=== PATIENT | male | born 1950 | race Caucasian/White ===

== ENCOUNTER 2018-07-02 14:22 | Observation (INO) | payer MEDICARE ==
[2018-07-02] VITALS (8 sets, daily range): BP systolic 108–139; BP diastolic 73–90
[~2018-07-02] VITALS: Ht 177.8 cm; Wt 104.9 kg
--- NOTE | 2018-07-02 14:18 | NUR ---
PT TO ICU 2 BY WC WITH AUX. PT RAN STRAIGHT TO TOILET, LEFT BRIGHT RED BLOOD IN TOILET.
--- NOTE | 2018-07-02 14:30 | NUR ---
IV ESTABLISHED. PT ON MONITOR. VSS. LABS DRAWN.
--- NOTE | 2018-07-02 14:30 | NUR ---
PT ARRIVED TO ICU [address] WINKLER. C/O DIARRHEA x4 DAYS BEFORE RECTAL BLEEDING x2 DAYS, WORSENING TODAY. WAS SENT OVER FROM DR WELLS OFFICE DURING A VISIT. PT RECENTLY MOVED FROM [facility] AND HOME TO [place]. C/O PAIN ALL OVER. STATES DR GAVE HIM A RX FOR TRAMADOL BUT HE DIDNT TAKE IT BC IT DOESNT WORK, ADDING DILAUDID WOULD BE BETTER. NO WINCHING, GRIMACING, GAURDING, NO CHANGE IN FACIAL EXPRESSION UPON PALPATION. ABD SOFT, ACTIVE BS x4. BREATHING IS EVEN/UNLABORED. INITIALLY SHALLOW BREATHING THEN NONLABORED. LUNG SOUNDS CTA TO ALL LOBES ANTERIOR & POSTERIOR. STRONG PULSES x4. SAUNDERS. PT IS POOR HISTORIAN. PHARM CONSULT PLACED WITH MED REC SENT FROM DR WELLS OFFICE. SKIN WARM/DRY/PINK. REDDNESS UNDER EYELIDS. DENIES WOUNDS EXCEPT SCRATCHES TO BILATERAL ARMS FROM NEW PUPPY. PT STATES HE LIVES WITH "LAURA", SO. HAS EXWIFE THAT LIVES IN [place]. DENIES SMOKING, ALCOHOL CONSUMPTION, & RECREATIONAL DRUGS BUT SMELLS LIKE CIGARETTE SMOKE. 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 STATES HAS UPPER&LOWER DENTURES. REFUSES FLU & PNA VACCINE. STATES LAST TIME HE HAD RECTAL BLEEDING HE NEEDED 21UNITS OF BLOOD TRANSFUSED. PT RAN TO TOILET ON INITIAL ARRIVAL. OBSERVED BRIGHT RED BLOOD IN TOILET & ON SEAT. PT REMAINS IN UNDERWARE FROM HOME BUT STATES THEY ARE CLEAN. NO FOUL OR IRON SMELL COMING FROM BATHROOM. PT WALKS WITH STEADY GAIT. ADMITTED TO ICU A MSU TELE OVERFLOW. ADVISED TO CALL IF HE FEELS WEAK OR LIGHTHEADED. DENIES FALLS. DOES NOT USE MOBILITY AIDE. IS MUSLIM. SPEAKS/READ/WRITES [employer] PRIMARY LANGUAGE. HAS NOT BEEN IN HOSPITAL IN LAST 30 DAYS. PT STATES HE HAS HAD RECTAL BLEEDING x6 TODAY. PT STATES HE TOOK 40MG OF PREDNISONE @HOME TODAY BEFORE ARRIVAL.
--- NOTE | 2018-07-02 14:35 | NUR ---
REGISTRATION AT BEDSIDE TO COMPLETE DIRECT ADMIT
--- NOTE | 2018-07-02 14:39 | NUR ---
2 WOMEN DROPPED OF PTS CELL PHONE.
--- NOTE | 2018-07-02 14:46 | NUR ---
RT @BEDSIDE FOR EKG
[2018-07-02 15:07] LABS: HEMATOCRIT 41.5 % (39.0-50.0); HEMOGLOBIN 13.9 g/dl (14.0-18.0); IMMATURE GRANULOCYTES 0.6 % (0.0-5.0); MEAN CELL VOLUME 98.1 fL CALC (80.0-100.0); MEAN CORPUSCULAR HGB 32.9 pG CALC (26.0-32.0); MEAN CORPUSCULAR HGB CONC 33.5 g/L CALC (32.0-36.0); NEUT# 13.7 thou/uL (1.82-7.42); RED BLOOD COUNT 4.23 mill/uL (4.70-6.10); RED CELL DISTRI WIDTH 12.7 % (11.5-15.5)
--- NOTE | 2018-07-02 15:11 | NUR ---
LAB @BEDSIDE FOR T&S BANDING & DRAW.
[2018-07-02 15:29] LABS: ALKALINE PHOSPHATASE 93 u/l (38-126); ANION GAP 18 (6-22 (CALC)); BILIRUBIN, TOTAL 0.6 mg/dL (0.0-1.4); BUN 20 mg/dL (8-23); BUN/CREATININE RATIO 19 (12-20 (CALC)); CARBON DIOXIDE 20 mmol/l (22-30); CHLORIDE 106 mmol/l (95-108); CREATININE 1.1 mg/dL (0.7-1.3); GFR > 60 ML/MIN (>=60 (CALC)); GFR FOR AFR.AMER. > 60 ML/MIN (>=60 (CALC)); POTASSIUM 4.5 mmol/l (3.5-5.1); SGOT/AST 23 u/l (19-48); SODIUM 139 mmol/l (137-146); TOTAL PROTEIN 7.6 g/dL (6.3-8.2)
[2018-07-02] MEDS ORDERED: ZOLPIDEM ER12.5 MG PO (15:44)
[2018-07-02] MEDS ORDERED: SOMA350 MG PO (15:46)
[2018-07-02] MEDS ORDERED: DIPHEN/ATROP2.5 MG PO ×2 (15:47→16:53)
[2018-07-02] MEDS ORDERED: SYMBICORT1 AE1 PO (15:50)
--- NOTE | 2018-07-02 16:29 | NUR ---
PT RETURNED FROM [facility] BY WC IN STABLE CONDITION WITH RN. PT UP TO TOILET FOR URINATION WITH STEADY GAIT. NO RECTAL BLEEDING OR DIARRHEA SINCE FIRST ARRIVAL
--- NOTE | 2018-07-02 16:39 | NUR ---
[employer], CASE MANAGEMENT, @BEDSIDE. PHARM STUDENT @BEDSIDE.
--- NOTE | 2018-07-02 16:43 | NUR ---
PER DR WINKLER, HOLD BLOOD D/T LAB RESULTS. LAB AWARE.
[2018-07-02] MEDS ORDERED: ZOFRAN4 MG/TAB PO (16:49)
[2018-07-02] MEDS ORDERED: MULTIVITAMI1 PO (16:50)
[2018-07-02] MEDS ORDERED: OMEPRAZOLE10 MG PO (16:50)
[2018-07-02] MEDS ORDERED: KLOR-CON 1010 MEQ PO (16:51)
[2018-07-02] MEDS ORDERED: ENTYVIO300 MG IV (16:53)
[2018-07-02] MEDS ORDERED: IMODIUM A-D2 M3 PO (16:54)
[2018-07-02] MEDS ORDERED: VITAMIN B-COMPLEX PO (16:55)
[2018-07-02] MEDS ORDERED: VITAMIN D35000 UNIT PO (16:55)
--- NOTE | 2018-07-02 17:36 | NUR ---
PT C/O OF ITCHING. DOES NOT WANT ME TO ADD DILAUDID TO HIS ALLERGY LIST. PT SITTING UP IN BED, EATING CLEAR LIQUID DINNER. GIVEN EXTRA JUICE. PT STATES HE DOES NOT LIKE GATORADE. PT WATCHING TV, JOKING/LAUGHING WITH STAFF. NO S/S OF DISTRESS AT THIS TIME. CALLBELL W/IN REACH. WILL CONTINUE TO MONITOR.
--- NOTE | 2018-07-02 17:54 | NUR ---
DR WINKLER @BEDSIDE WITH PT, REVIEWED TEST RESULTS, DISCUSSING RESULTS & POC WITH PT.
--- NOTE | 2018-07-02 18:22 | NUR ---
COMPLETED FALL CONTRACT & BELONGINGS SHEET WITH PT. REVIEWED/SIGNED CONSENT TO GIVE BLOOD PRODUCTS. PT REQUEST WE "GO AHEAD AND JUST GIVE HIM HIS PAIN MEDICINE EVERY 4 HOURS SO HE DOESNT HAVE TO ASK FOR IT".
--- NOTE | 2018-07-02 18:29 | NUR ---
FAXED BLOOD PRODUCTS CONSENT TO [facility]. FAXED NACL KVO TO .
--- NOTE | 2018-07-02 18:45 | NUR ---
REPORT FROM Berna AHUJA RN. ASSUMED PT. CARE.
--- NOTE | 2018-07-02 19:25 | NUR ---
PT. FOUND RESTING IN BED IN NO DISTRESS. REQUESTING PAIN MEDICATION AT THIS TIME. UPDATED ON PLAN OF CARE AND TIME AND SCHEDULING OF PAIN MEDICATION. AWAKE, ALERT, ORIENTED X 3. NO DISTRESS. MAE. MOTA. AFEBRILE. PT. PROVIDED WITH BASIN, WASH CLOTHS AND TOWELS AT THIS TIME PER HIS REQUEST. SET UP IN RESTROOM TO CLEAN UP. AMBULATORY WITH STEADY GAIT TO AND FROM RESTROOM. NO DISTRESS NOTED. WILL CONTINUE TO MONITOR.
[2018-07-02 20:24] LABS: HEMOGLOBIN 12.8 g/dl (14.0-18.0); IMMATURE GRANULOCYTES 0.7 % (0.0-5.0); MEAN CELL VOLUME 98.4 fL CALC (80.0-100.0); MEAN CORPUSCULAR HGB 33.2 pG CALC (26.0-32.0); MEAN CORPUSCULAR HGB CONC 33.7 g/L CALC (32.0-36.0); NEUT# 15.85 thou/uL (1.82-7.42); RED BLOOD COUNT 3.86 mill/uL (4.70-6.10); RED CELL DISTRI WIDTH 12.6 % (11.5-15.5)
--- NOTE | 2018-07-02 20:54 | NUR ---
CALLED AND MADE AWARE OF PT. CURRENT LAB VALUES AND REQUEST FOR MUSCLE RELAXANT. NEW ORDERS RECEIVED. WILL HOLD 2 UNITS OF BLOOD PER DR. WINKLER REQUEST UNTIL RESULTS OF AM LABS. PT. REMAINS STABLE IN NO DISTRESS.
--- NOTE | 2018-07-02 22:51 | NUR ---
PT. REMAINS STABLE AT THIS TIME. RESPS REMAIN EVEN AND UNLABORED. SINUS/SINUS TACH. REMAINS STABLE IN NO APPARENT DISTRESS. CALL LIGHT REMAINS WITHIN REACH. MEDICATED PER REQUEST AND PHYSICIAN ORDERS.
[2018-07-03] VITALS: BP 116/68
[2018-07-03 00:39] LABS: URINE BILIRUBIN - DIPSTICK NEGATIVE (NEGATIVE); URINE BLOOD DIPSTICK NEGATIVE (NEGATIVE); URINE COLOR YELLOW; URINE GLUCOSE - DIPSTICK 250 mg/dL (NEGATIVE); URINE KETONE NEGATIVE (NEGATIVE); URINE LEUK ESTERASE NEGATIVE (NEGATIVE); URINE NITRITE - DIPSTICK NEGATIVE (Negative); URINE PROTEIN - DIPSTICK NEGATIVE (NEG-TRACE); URINE UROBILINOGEN - DIPSTICK 0.2 E.U./dL (0.2)
--- NOTE | 2018-07-03 01:59 | NUR ---
PT. FOUND RESTING ON RT. SIDE IN NO DISTRESS. RESPS EVEN AND UNLABORED. VOICES NO COMPLAINTS OR NEEDS AT THIS TIME. CALL LIGHT WITHIN REACH. WILL CONTINUE TO MONITOR.
[2018-07-03 04:00] VITALS: BP 108/56
--- NOTE | 2018-07-03 04:39 | NUR ---
IMMEDIATELY UPON THE 4 HOUR THI, PATIENT CONSERVATION POLICY ANALYST LIGHT REQUESTING PAIN MEDICATION. AGAIN REPORTING 7-8/10 PAIN LEVEL. RESTING IN BED IN NO APPARENT DISTRESS. BP/HR STABLE. MEDICATED AND UPDATED ON AM PLAN OF CARE. IV FLUIDS CONTINUE TO INFUSE ORDERED. URINAL EMPTIED OF 850 CC STRAW COLORED URINE. ALSO UPDATED ON UPCOMING MOVE TO MED/SURG FLOOR. DENIES OTHER COMPLAINTS OR NEEDS.
--- NOTE | 2018-07-03 05:30 | NUR ---
REPORT TO AGUS FORBES.
[2018-07-03 05:38] LABS: ALBUMIN 3.3 g/dL (3.2-5.0); ALKALINE PHOSPHATASE 74 u/l (38-126); ANION GAP 13 (6-22 (CALC)); BILIRUBIN, TOTAL 0.4 mg/dL (0.0-1.4); BUN 17 mg/dL (8-23); BUN/CREATININE RATIO 24 (12-20 (CALC)); CARBON DIOXIDE 22 mmol/l (22-30); CHLORIDE 106 mmol/l (95-108); CREATININE 0.7 mg/dL (0.7-1.3); GFR > 60 ML/MIN (>=60 (CALC)); GFR FOR AFR.AMER. > 60 ML/MIN (>=60 (CALC)); POTASSIUM 4.4 mmol/l (3.5-5.1); SGOT/AST 13 u/l (19-48); SODIUM 136 mmol/l (137-146); TOTAL PROTEIN 6.3 g/dL (6.3-8.2)
--- NOTE | 2018-07-03 06:35 | NUR ---
PT ARRIVED TO THE ROOM VIA WHEELCHAIR ACCOMPANIED BY YEIMI, PT AMBULATED FROM WHEELCHAIR TO SCALE, TO BED, STEADY GATE. PT ALERT AND ORIENTED. DENIES ANY PAIN AT THIS TIME. RESPIRATIONS EVEN AND UNLABORED ON RA. VS OBTAINED. PT ORIENTED TO ROOM AND CALL OLIVERA SYSTEM. SAFETY PRECAUTIONS IN PLACE.
[2018-07-03 06:42] VITALS: BP 139/85
[2018-07-03 06:49] LABS: HEMATOCRIT 35.2 % (39.0-50.0); HEMOGLOBIN 11.6 g/dl (14.0-18.0); IMMATURE GRANULOCYTES 0.6 % (0.0-5.0); MEAN CELL VOLUME 99.2 fL CALC (80.0-100.0); MEAN CORPUSCULAR HGB 32.7 pG CALC (26.0-32.0); NEUT# 12.33 thou/uL (1.82-7.42); RED BLOOD COUNT 3.55 mill/uL (4.70-6.10); RED CELL DISTRI WIDTH 12.5 % (11.5-15.5)
--- NOTE | 2018-07-03 06:50 | NUR ---
REPORT RECEIVED FROM AGUS FORBES; PT SITTING UP IN BED AWAKE, WATCHING TV; NO S/S OF DISTRESS NOTED.
[2018-07-03 08:31] VITALS: BP 108/69
--- NOTE | 2018-07-03 09:00 | NUR ---
PER DR WINKLER, LAB RESULTS NOT LOW ENOUGH FOR BLOOD TRANSFUSION. HOLD TRANSFUSION.
--- NOTE | 2018-07-03 10:22 | NUR ---
ASSESSMENT COMPLETED; SITTING UP IN BED ON HIS PHONE, RESP EVEN AND UNLABORED ON ROOM AIR; IVS PATENT; D5-1/2 @125CC/HR; C/O PAIN 08/14 MEDICATED AT 0900; NO S/S OF DISTRESS NOTED; CALL OLIVERA AND URINAL IN REACH; SAFETY PRECAUTION REINFORCE;
--- NOTE | 2018-07-03 11:59 | NUR ---
PT SITTING UP IN BED EATING LUNCH AND WATCHING TV; MEDICATED PER EMAR; WANTS TO KNOW WHAT TIME HIS FLEXERIL'S DUE (1400) VOIDED 700CC CLEAR, YELLOW URINE; CALL OLIVERA IN REACH; IV PATENT;
[2018-07-03 15:12] VITALS: BP 121/70
--- NOTE | 2018-07-03 16:06 | NUR ---
TALKING ON THE PHONE, SMILING; VOICE NO CONCERNS; EMPTIED 300CC CLEAR, YELLOW URINE;IVF INFUSING WITHOUT DIFFICULTY; WILL CONTINUE TO MONITOR.
--- NOTE | 2018-07-03 18:01 | NUR ---
#20G LAC INFILTRATE, CATH REMOVE,INTACT; SLIGHT SWELLING TO SITE; IVF RESUME TO #22G; C/O OF PAIN 09/14 REQUEST DILAUDID, MEDICATED PER EMAR;
[2018-07-03 19:09] VITALS: BP 140/81
--- NOTE | 2018-07-03 20:00 | NUR ---
PATIENT RESTING IN BED AT THIS TIME AWAKE ALERT AND ORIENTEDX3. PATIENT WITH IV SITE TO LEFT FOREARM WITH IVF PATENT AND INFUSING AT 125CC/HR. SITE APPEARS HEALTHY AT THIS TIME. PATIENT STATES NO BM TODAY-INSTRUCTED TO SAVE SPEC FOR STAFF TO EVAL WHEN HE DOES HAVE BM. VOIDING QS IN URINAL. PATIENT ASKING ABOUT WHEN HE CAN GET PAIN MEDS AGAIN AND WAS ADVISED NOT UNTIL APPROX 2200. VERBALIZES UNDERSTANDING. SAFETY PRECAUTIONS REINFORCED. CALL LIGHT IN REACH. WILL CONT TO MONITOR.
--- NOTE | 2018-07-03 22:26 | NUR ---
PATIENT RESTING IN BED AT THIS TIME WITH C/O ABD PAIN AND REQUESTING PAIN MEDS. PATIENT STATES THAT HIS PAIN IS 6/10 ON PAIN SCALE. MEDICATED WITH DILAUDID 1MG IVP FOR PAIN AND WITH RESTORIL FOR SLSSP. IV SITE TO LEFT FOREARM INTACT WITH IVF D51/2NS PATENT ANDINFUSING AT 125CC/HR. SITE REMAINS HEALTHY AT THIS TIME. VOIDING CLEAR YELLOW URINE IN URINAL. CALL LIGHT IN REACH. WILL CONT TO MONITOR.
--- NOTE | 2018-07-04 00:10 | NUR ---
PATIENT RESTING IN BED-MEDICATED WITH SOLU-MEDROL ORDERED. IVF PATENT AND INFUSING AT 125CC/HR. SITE LEFT FOREARM REMAINS HEALTHY. SAFETY PRECAUTIONS REINFORCED. CALL LIGHT IN REACH. WILL CONT TO MONITOR.
--- NOTE | 2018-07-04 02:15 | NUR ---
PATIENT CALLED FOR PAIN MEDS JUST PRIOR TO MED BEING DUE. STATES THAT PAIN IS BAD-HIS WHOLE ABD. STILL NO BM OR RECTAL BLEEDING NOTED. PATIENT MEDICATED WITH DILAUDID 1MG IVP ORDERED FOR PAIN. IVF D51/2NS PATENT AND INFUSING AT 75CC/HR. SITE IS HEALTHY. CALL LIGHT IN REACH. WILL CONT TO MONITOR.
[2018-07-04 04:27] VITALS: BP 112/71
[2018-07-04 05:20] LABS: HEMATOCRIT 34.5 % (39.0-50.0); HEMOGLOBIN 11.2 g/dl (14.0-18.0); IMMATURE GRANULOCYTES 1.5 % (0.0-5.0); MEAN CELL VOLUME 102.7 fL CALC (80.0-100.0); MEAN CORPUSCULAR HGB 33.3 pG CALC (26.0-32.0); MEAN CORPUSCULAR HGB CONC 32.5 g/L CALC (32.0-36.0); NEUT# 24.36 thou/uL (1.82-7.42); RED BLOOD COUNT 3.36 mill/uL (4.70-6.10); RED CELL DISTRI WIDTH 12.7 % (11.5-15.5)
[2018-07-04 05:28] LABS: ALBUMIN 3.4 g/dL (3.2-5.0); ALKALINE PHOSPHATASE 76 u/l (38-126); ANION GAP 13 (6-22 (CALC)); BILIRUBIN, TOTAL 0.3 mg/dL (0.0-1.4); BUN 18 mg/dL (8-23); BUN/CREATININE RATIO 22 (12-20 (CALC)); CARBON DIOXIDE 27 mmol/l (22-30); CHLORIDE 105 mmol/l (95-108); CREATININE 0.8 mg/dL (0.7-1.3); GFR > 60 ML/MIN (>=60 (CALC)); GFR FOR AFR.AMER. > 60 ML/MIN (>=60 (CALC)); POTASSIUM 4.8 mmol/l (3.5-5.1); SGOT/AST 13 u/l (19-48); SODIUM 140 mmol/l (137-146); TOTAL PROTEIN 6.5 g/dL (6.3-8.2)
[2018-07-04] MEDS ORDERED: PREDNISODT10 PO (06:54)
--- NOTE | 2018-07-04 06:55 | NUR ---
REPORT RECEIVED FROM AGUS BARFIELD; PT SITTING UP IN BED WATCHING TV; VOICE NO CONCERNS. CALL OLIVERA IN REACH.
--- NOTE | 2018-07-04 08:44 | NUR ---
DR WINKLER AT BEDSIDE TO DISCUSS POC
[2018-07-04] MEDS ORDERED: LEVAQUIN750 MG PO (09:12)
[2018-07-04 09:22] VITALS: BP 134/80
--- NOTE | 2018-07-04 09:27 | NUR ---
ASSESSMENT COMPLETED; SITTING UP IN BED WATCHING TV; INQUIRE OF PAIN MEDS, ADVISE IT'S DUE AT 10:00 AM; AWARE OF BEING D/C TODAY, STATES "HOPE I GET MY PAIN MED BEFORE I LEAVE" EMPTIED 200CC CLEAR, YELLOW URINE FROM URINAL; NO S/S OF DISTRESS NOTED;
--- NOTE | 2018-07-04 10:08 | NUR ---
D/C INSTRUCTIONS GIVEN TO PT ALONG WITH PRESCRIPTIONS; FOLLOW UP WITH DR WINKLER IN A WEEK/LABS; VERBALIZE UNDERSTANDING
--- NOTE | 2018-07-04 12:17 | NUR ---
HEARD PT ON THE PHONE WITH SPOUSE SAYING "LAURA YOU NEED TO COME GET ME, THEY ARE MAD AT ME, THEY NEED THIS ROOM FOR SOMEONE ELSE. IF YOU DON'T COME GET ME I WILL SCREAM AND GET A TAXI"
--- NOTE | 2018-07-04 12:31 | NUR ---
Discharge instructions given. Patient verbalizes understanding of same. Discharged in stable condition via Wheelchair to Home with spouse. All belongings sent with pt.
== END 2018-07-04 12:31 | disposition home or self-care (01) ==
LOC: ICU 14:22 → MS2 07-03 06:30
PROVIDERS: ADMIT Internal Medicine Geriatric Medicine; ATTEND Internal Medicine Geriatric Medicine
DX: K51.911 Ulcerative colitis, unspecified with rectal bleeding (principal); I10 Essential (primary) hypertension; M06.9 Rheumatoid arthritis, unspecified; M19.90 Unspecified osteoarthritis, unspecified site; J44.9 Chronic obstructive pulmonary disease, unspecified; E11.42 Type 2 diabetes mellitus with diabetic polyneuropathy; E78.5 Hyperlipidemia, unspecified; I25.10 Atherosclerotic heart disease of native coronary artery without angina pectoris; K75.81 Nonalcoholic steatohepatitis (NASH); E83.119 Hemochromatosis, unspecified; D64.9 Anemia, unspecified
CPT/HCPCS: Q9967

== ENCOUNTER 2018-08-07 08:33 | Day surgery (SDC) | payer MEDICARE ==
[~2018-08-07 08:33] MED LIST: ADVIL200 MG PO; ASHWAGANDHA500 MG; DIPHEN/ATROP2.5 MG PO; DIPHENOXYLATE/A1 TA1; ENTYVIO300 MG IV; GINGER ROOT550 MG PO; GINKGO BILOB120 MG PO; IMODIUM A-D2 M3 PO; KLOR-CON 1010 MEQ PO; LEVAQUIN750 MG PO; LIALDA1.2 GM PO; METOPROL TAR25 MG PO; MULTIVITAMI1 PO; OMEPRAZOLE10 MG PO; PREDNISODT10 PO; SOMA350 MG PO; SYMBICORT1 AE1 PO; TURMERI1 PO; TYLENOL650 MG RE; VITAMIN B-COMPLEX PO; VITAMIN D35000 UNIT PO; ZOFRAN4 MG/TAB PO; ZOLPIDEM ER12.5 MG PO
[2018-08-07 11:08] VITALS: BP 96/60
[2018-08-12] MEDS ORDERED: NITROSTAT0.4 MG SL (11:27)
[2018-08-12] MEDS ORDERED: TRAMADOL HCL50 MG PO (11:27)
[2018-08-12] MEDS ORDERED: PREDNISONE10 MG PO (11:27)
== END 2018-08-07 11:20 | disposition home or self-care (01) ==
LOC: ENDO 08:33 → ORM 12:10 → ENDO 13:00 → ORM 14:55
PROVIDERS: ATTEND Internal Medicine Gastroenterology
PROC: 0DBK8ZX Excision of Ascending Colon, Via Natural or Artificial Opening Endoscopic, Diagnostic (ICD-10-PCS; principal; 2018-08-07)
PROC: 0DBL8ZX Excision of Transverse Colon, Via Natural or Artificial Opening Endoscopic, Diagnostic (ICD-10-PCS; 2018-08-07)
PROC: 0DBN8ZX Excision of Sigmoid Colon, Via Natural or Artificial Opening Endoscopic, Diagnostic (ICD-10-PCS; 2018-08-07)
PROC: 0DBP8ZX Excision of Rectum, Via Natural or Artificial Opening Endoscopic, Diagnostic (ICD-10-PCS; 2018-08-07)
PROC: 0DBM8ZX Excision of Descending Colon, Via Natural or Artificial Opening Endoscopic, Diagnostic (ICD-10-PCS; 2018-08-07)
DX: K50.114 Crohn's disease of large intestine with abscess (principal); K50.111 Crohn's disease of large intestine with rectal bleeding; K64.4 Residual hemorrhoidal skin tags; K64.8 Other hemorrhoids; K63.89 Other specified diseases of intestine; Z86.010 Personal history of colon polyps

== ENCOUNTER 2019-08-09 11:55 | Inpatient (IN) | payer MEDICARE ==
[~2019-08-09] VITALS: Ht 177.8 cm; Wt 109.8 kg
[~2019-08-09 11:55] MED LIST changes: +NITROSTAT0.4 MG SL; +PREDNISONE10 MG PO; +TRAMADOL HCL50 MG PO
--- NOTE | 2019-08-09 12:08 | NUR ---
PATIENT AMBULATED TO ROOM WITH STEADY GAIT AND PRACTIONER AT BEDSIDE FOR EVAL
[2019-08-09] MEDS ORDERED: OMEPRAZOLE DR20 MG PO (12:10)
[2019-08-09] MEDS ORDERED: POT CHLORIDE10 ME5 PO (12:11)
[2019-08-09] MEDS ORDERED: DIPHEN/ATROP2.5 MG PO (12:12)
--- NOTE | 2019-08-09 12:15 | NUR ---
#20 IV STARTED IN RIGHT HAND. BLOOD SPECIMENS AND URINE COLLECTED. ADVISEDOF PLAN OF CARE. VERBALIZED UNDERSTANDING. CALL LIGHT GIVEN.
[2019-08-09] MEDS ORDERED: STELARA130 MG/26 SC (12:20)
[2019-08-09] MEDS ORDERED: METOPROL TAR25 MG PO (12:21)
--- NOTE | 2019-08-09 12:30 | NUR ---
PT REPORTS PAINFUL URINATION STARTING 3 DAYS PRIOR. PT WAS SEEN BY UROLOGIST ON FRIDAY AND REPORTS HE WAS NOT PRESCRIBED ANYTHING. PT UPDATED ON PLAN OF CARE AND WAIT TIME. CALL JOSELIN REDD.
[2019-08-09 12:33] LABS: HEMOGLOBIN 13.1 g/dl (14.0-18.0); IMMATURE GRANULOCYTES 1.6 % (0.0-5.0); MEAN CORPUSCULAR HGB 31.1 pG CALC (26.0-32.0); MEAN CORPUSCULAR HGB CONC 32.8 g/dL CAL (32.0-36.0); NEUT# 24.89 thou/uL (1.82-7.42); RED BLOOD COUNT 4.21 mill/uL (4.70-6.10); RED CELL DISTRI WIDTH 13.6 % (11.5-15.5)
[2019-08-09] MEDS ORDERED: BUDESONIDE3 MG PO (12:35)
[2019-08-09 12:44] LABS: ALBUMIN 3.4 g/dL (3.2-5.0); ALKALINE PHOSPHATASE 148 u/l (38-126); BUN 15 mg/dL (8-23); BUN/CREATININE RATIO 13 (12-20 (CALC)); CHLORIDE 106 mmol/l (95-108); CREATININE 1.1 mg/dL (0.7-1.3); GFR > 60 ML/MIN (>=60 (CALC)); GFR FOR AFR.AMER. > 60 ML/MIN (>=60 (CALC)); LIPASE 121 u/l (23-300); POTASSIUM 4.1 mmol/l (3.5-5.1); SGOT/AST 18 u/l (19-48); SODIUM 138 mmol/l (137-146); TOTAL PROTEIN 7.5 g/dL (6.3-8.2)
[2019-08-09 12:57] LABS: ANION GAP 15 (6-22 (CALC)); BILIRUBIN, TOTAL 0.6 mg/dL (0.0-1.4); CARBON DIOXIDE 21 mmol/l (22-30)
[2019-08-09 13:12] LABS: URINE BLOOD DIPSTICK LARGE (NEGATIVE); URINE COLOR YELLOW; URINE GLUCOSE - DIPSTICK NEGATIVE (NEGATIVE); URINE KETONE TRACE mg/dL (NEGATIVE); URINE LEUK ESTERASE TRACE (NEGATIVE); URINE PROTEIN - DIPSTICK 100 mg/dL (NEG-TRACE); URINE SPECIFIC GRAVITY >=1.030; URINE UROBILINOGEN - DIPSTICK 0.2 E.U./dL (0.2)
--- NOTE | 2019-08-09 13:25 | NUR ---
PT RETURNED FROM RADIOLOGY. 1ST SET OF BLOOD CX OBTAINED AND LACTIC PER EDITOR MANAGING NEWSPAPER ORDER. PT TOLERATED WELL. ADVISED OF CONTINUED WAIT FOR RESULTS. VERBALIZED UNDERSTANDING. DENIES ANY NEEDS. CALL LIGHT GIVEN.
[2019-08-09 13:32] LABS: URINE BILIRUBIN - DIPSTICK SMALL (NEGATIVE)
--- NOTE | 2019-08-09 13:37 | NUR ---
DR LIMA IN ROOM SPEAKING WITH PT.
[2019-08-09 13:38] LABS: URINE NITRITE - DIPSTICK POSITIVE (Negative)
[2019-08-09 13:55] LABS: URINE RBC 0-2 RBC/hpf (0-5); URINE SQUAMOUS EPITHELIAL CELL FEW EPI/hpf (0-FEW)
[2019-08-09 13:56] LABS: URINE MUCUS FEW hpf (NONE-FEW)
--- NOTE | 2019-08-09 14:00 | NUR ---
BLADDER SCAN COMPLETED PER MD ORDER 57ML IN BLADDER MD NOTIFIED
--- NOTE | 2019-08-09 14:30 | NUR ---
PT RESTING ON STRECHER. RESP EVEN AND UNLABORED. SKIN WARM AND DRY. REPORTS PAIN LEVEL 4/10 AFTER MEDICATION ADMINISTRATION.
--- NOTE | 2019-08-09 15:57 | NUR ---
REPORT CALLED TO MED SURG
--- NOTE | 2019-08-09 16:05 | NUR ---
Admission Note Report Given to: AGUS LAW Transported by: X Wheelchair Stretcher Transported with: X Nurse Transporter X Patent IV O2 X Sheep And Wheat Farmer Location: ICU X MS2 PT TO ROOM 268 IN STABLE CONDITION.
[2019-08-09 16:12] VITALS: BP 123/73
--- NOTE | 2019-08-09 16:15 | NUR ---
PT ADMITTED TO MED SURG. PT ORIENTED TO ROOM, CALL BUTTON, LIGHTS, TV REMOTE, [place]. PT IS ALERT AND ORIENTED AND ABLE TO MAKE HIS NEEDS KNOWN. PT C/O PAIN WITH URINATION THAT RESOLVES AFTER PT IS DONE URINATING. PT DESCRIBES PAIN BURNING PAIN. PT ALSO C/O URGENCY. URINE IS YELLOW AND CLEAR. PT C/O TENDERNESS IN LOWER ABDOMEN DUE TO HX OF CROHN'S DISEASE. STORM DOOR MAKER WILL CONTINUE TO MONITOR. CALL LIGHT WITHIN EASY REACH.
[2019-08-09 18:24] VITALS: BP 142/81
--- NOTE | 2019-08-09 20:00 | NUR ---
PATIENT RESTING IN BED AT THIS TIME-AWAKE ALERT AND ORIENTEDX3. PATIENT STATES THAT HE CONT TO HAVE PAIN UPON URINATION AND SOME URINE INCONT. PATIENT ALSO WITH HX OF CROHNS DISEASE-HAVING WATERY RUST COLORED STOOLS. TELE MONITOR IN PLACE-SR-89 AT THIS TIME. IVF NS PATENT AND INFUSING VIA RIGHT HAND SITE. APPEARS HEALTHY AT THIS TIME. SAFETY PRECAUTIONS REINFORCED. CALL LIGHT IN REACH. WILL CONT TO MONITOR.
--- NOTE | 2019-08-09 21:30 | NUR ---
MEDICATED FOR ABD PAIN WITH TYLENOL ORDERED. CALL LIGHT IN REACH. WILL CONT TO MONITOR.
--- NOTE | 2019-08-09 23:00 | NUR ---
PATIENT STATES THAT HE CONT TO HAVE WATERY RUST COLORED STOOLS. 6 SO FAR TONIGHT. PATIENT CONT TO HAVE ABD PAIN. TYLENOL INEFFECTIVE WITH THE PAIN.CALL PLACED TO DR. ACOSTA AND NEW ORDER FOR PAIN OBTAINED. WILL MEDICATE WITH MORPHINE WHEN PROFILED ON EMAR. CALL LIGHT IN REACH. WILL CONT TO MONITOR.
[2019-08-09 23:33] VITALS: BP 126/82
--- NOTE | 2019-08-10 00:09 | NUR ---
PATIENT CONT TO HAVE RUST COLORED DIARRHEA-PATIENT HX 0F CROHNS DISEASE. C/O SEVERE ABD PAIN. MEDICATED WITH LOMOTIL 5MG PO FOR DIARRHEA AND WITH MORPHINE 2MG FOR PAIN. CALL LIGHT IN REACH. WILL CONT TO MONITOR.
[2019-08-10 03:29] VITALS: BP 133/80
--- NOTE | 2019-08-10 05:13 | NUR ---
PATIENT RESTING IN BED-C/O ABD PAIN-MEDICATED FOR PAIN WITH MORPHINE 2MG IVP VIA RIGHT HAND IV SITE. TELE MONITOR IN PLACE. CONT TO HAVE LOOSE STOOLS. SAFETY PRECAUTIONS REINFORCED. CALL LIGHT IN REACH. WILL CONT TO MONITOR.
--- NOTE | 2019-08-10 05:14 | NUR ---
APPEARS SLEEPING AT THIS TIME WITH EYES CLOSED. RESPS ARE EVEN AND UNLABORED. TELE MONITOR IN PLACE. CALL LIGHT IN REACH. WILL CONT TO MONITOR.
[2019-08-10 06:11] LABS: HEMATOCRIT 35.4 % (39.0-50.0); HEMOGLOBIN 11.4 g/dl (14.0-18.0); IMMATURE GRANULOCYTES 1.1 % (0.0-5.0); MEAN CELL VOLUME 96.2 fL CALC (80.0-100.0); MEAN CORPUSCULAR HGB CONC 32.2 g/dL CAL (32.0-36.0); NEUT# 18.07 thou/uL (1.82-7.42); RED BLOOD COUNT 3.68 mill/uL (4.70-6.10); RED CELL DISTRI WIDTH 13.2 % (11.5-15.5)
[2019-08-10 07:03] LABS: ALBUMIN 2.8 g/dL (3.2-5.0); ALKALINE PHOSPHATASE 129 u/l (38-126); ANION GAP 11 (6-22 (CALC)); BILIRUBIN, TOTAL 0.3 mg/dL (0.0-1.4); BUN 14 mg/dL (8-23); BUN/CREATININE RATIO 16 (12-20 (CALC)); CARBON DIOXIDE 20 mmol/l (22-30); CHLORIDE 109 mmol/l (95-108); CREATININE 0.9 mg/dL (0.7-1.3); GFR > 60 ML/MIN (>=60 (CALC)); GFR FOR AFR.AMER. > 60 ML/MIN (>=60 (CALC)); POTASSIUM 4.2 mmol/l (3.5-5.1); SGOT/AST 17 u/l (19-48); SODIUM 136 mmol/l (137-146); TOTAL PROTEIN 6.4 g/dL (6.3-8.2)
--- NOTE | 2019-08-10 07:30 | NUR ---
change of shift report received from jluis Miguel. pt in room in semi-aguilar position. pt is able to make needs known. pt requesting lomotil for c/o diarrhea. lomotil administered per order. pt notified to not flush stool after bowel movement so that film writer can observe. pt verbalized understanding.
[2019-08-10 09:21] VITALS: BP 126/87
[2019-08-10 11:57] VITALS: BP 124/83
--- NOTE | 2019-08-10 12:00 | NUR ---
PAIN MEDICATION ADMINISTERED FOR C/O PAIN OF 10/14. WHEELCHAIR VAN DRIVER WILL CONTINUE TO MONITOR
[2019-08-10 15:18] VITALS: BP 117/67
--- NOTE | 2019-08-10 15:44 | NUR ---
pt has had two episodes of yellow loose stool. no blood noted in stool.
--- NOTE | 2019-08-10 17:56 | NUR ---
DOCTOR STEPHANIE NOTIFIED OF PT'S C/O INSOMNIA. PT REQUESTING MEDS FOR SLEEP THIS PM. NEW ORDER FOR RESTORIL 10MG ONE TIME DOSE FAXED TO [facility].
[2019-08-10 18:18] VITALS: BP 134/79
--- NOTE | 2019-08-10 20:15 | NUR ---
PT AWAKE RESTING IN BED. ALERT AND ORIENTED X3. RESP EVEN AND UNLABORED. NO DISTRESS NOTED. O2 SAT ON R/A 95%. SKIN WARM AND DRY. IV SITE IS PATENT IN RT HAND NO REDNESS,SWELLING OR TENDERNESS NOTED AT IV SITE. IVF NSS AT 125CC/HR. LUNGS CLEAR BILAT. ABD SOFT AND NONDISTENDED WITH BOWEL SOUNDS PRESENT. NO LOWER EXT EDEMA NOTED. PEDAL PULSES PALPATED BILAT. PT VOIDED 200CC OF CLEAR YELLOW URINE IN URINAL. TELE SR 80'S PER E.D. PT OFFERS NO COMPLAINTS AT THIS TIME. ASSISTED WITH REPOSITIONING. FREQUENT ROUNDS MADE. CALL OLIVERA WITHIN REACH.
--- NOTE | 2019-08-10 22:01 | NUR ---
PT AWAKE RESTING IN BED. INFORMED THIS FOOT ORTHOPEDIST SPOKE WITH DR BROWN REGARDING ACCUCHECK OF 316 AND SLIDING SCALE HAS BEEN ORDERED. PT MEDICATED WITH NOVOLOG INSULIN 4 UNITS S.Q. , MORPHINE SULFATE 2MG IV FOR ABDOMINAL AND BACK DISCOMFORT, RESTORIL 15MG ONE TAB P.O FOR SLEEP AND LOMOTIL 5MG P.O . PT HAS HAD NO BOWEL MOVEMENT THIS SHIFT BUT INSIST HE NEEDS LOMOTIL BECAUSE HE STATES HE TAKES IT SIX TIMES A DAY AT HOME. IV SITE PATENT. FREQUENT ROUNDS MADE. CALL OLIVERA WITHIN REACH.
[2019-08-10 23:35] VITALS: BP 108/63
--- NOTE | 2019-08-11 00:09 | NUR ---
PT RESTING IN BED WITH EYES CLOSED. RESP EVEN AND UNLABORED. NO DISTRESS NOTED. IV SITE PATENT. TELE INTACT. FREQUENT ROUNDS MADE. CALL OLIVERA WITHIN REACH.
--- NOTE | 2019-08-11 03:12 | NUR ---
PT RANG CALL OLIVERA FOR PAIN MED. MEDICATED WITH MORPHINE SULFATE 2MG IV FOR ABD AND BACK DISCOMFORT. IV SITE PATENT. PT STATES HE HAD DIARRHEA AND ITS IN THE TOILET, FOR US TO SEE. NO BOWEL MOVEMENT IN TOILET ONLY TOILET PAPER. NO OBSERVED BM'S THIS SHIFT. FREQUENT ROUNDS MADE. CALL OLIVERA WITHIN REACH.
[2019-08-11 03:48] VITALS: BP 115/73
--- NOTE | 2019-08-11 04:32 | NUR ---
PT RESTING IN BED WITH EYES CLOSED. RESP EVEN AND UNLABORED. IV SITE PATENT WITH NSS AT 125CC/HR. TELE SR. ASSESSMENT UNCHANGED. FREQUENT ROUNDS MADE. CALL OLIVERA WITHIN REACH.
--- NOTE | 2019-08-11 05:20 | NUR ---
PT USED BCS. PT HAD A SMALL LOSE LIGHT BROWN BOWEL MOVEMENT. PT REFERS TO IT DIARRHEA BUT ITS NOT. NO BLOOD NOTED. CALL OLIVERA WITHIN REACH.
[2019-08-11 05:57] LABS: HEMATOCRIT 36.2 % (39.0-50.0); HEMOGLOBIN 11.6 g/dl (14.0-18.0); IMMATURE GRANULOCYTES 1.4 % (0.0-5.0); MEAN CELL VOLUME 96.3 fL CALC (80.0-100.0); MEAN CORPUSCULAR HGB 30.9 pG CALC (26.0-32.0); NEUT# 16.96 thou/uL (1.82-7.42); RED BLOOD COUNT 3.76 mill/uL (4.70-6.10); RED CELL DISTRI WIDTH 13.2 % (11.5-15.5)
[2019-08-11 06:12] LABS: ANION GAP 14 (6-22 (CALC)); BUN 9 mg/dL (8-23); BUN/CREATININE RATIO 13 (12-20 (CALC)); CARBON DIOXIDE 19 mmol/l (22-30); CHLORIDE 110 mmol/l (95-108); CREATININE 0.7 mg/dL (0.7-1.3); GFR > 60 ML/MIN (>=60 (CALC)); GFR FOR AFR.AMER. > 60 ML/MIN (>=60 (CALC)); POTASSIUM 4.3 mmol/l (3.5-5.1); SODIUM 139 mmol/l (137-146)
--- NOTE | 2019-08-11 07:00 | NUR ---
SHIFT CHANGE REPORT, PT AWAKE ALERT AND ORIENTED AMBULATING IN ROOM FROM BED TO BR, IVF INFUSING, TELE MONITOR IN PLACE, C/O RIGHT SIDE ABDOMINAL PAIN, CONDERNS ADDRESSED, CALL OLIVERA IN REACH.
[2019-08-11 08:04] VITALS: BP 116/68
[2019-08-11 10:55] VITALS: BP 122/75
--- NOTE | 2019-08-11 12:00 | NUR ---
UP TO BR INDEPENDENTLY, MEDICAL TEAM ROUNDED AND DISCUSSED PLAN OF CARE, ALL NEEDS ADDRESSED, CALL OLIVERA IN REACH.
[2019-08-11 15:50] VITALS: BP 113/69
--- NOTE | 2019-08-11 15:50 | NUR ---
RESTING IN BED AT THIS TIME, NO CONCERN TO BE BE ADDRESSED.
[2019-08-11 19:00] VITALS: BP 136/80
--- NOTE | 2019-08-11 19:13 | NUR ---
REPORT RECEIVED FROM AGUS BANDA. PT RESTING IN BED, ALERT AND ORIENTED. RESPIRATIONS EVEN AND UNLABORED ON RA, LUNGS SOUND CLEAR. PT REPORTS PAIN OF A 7/10, PT TO BE MEDICATED. SAFETY PRECAUTIONS IN PLACE. WILL CONTINUE TO MONITOR.
[2019-08-12] VITALS: BP 148/81
--- NOTE | 2019-08-12 00:24 | NUR ---
PT RESTING IN BED, RESPIRATIONS EVEN AND UNLABORED ON RA. NO S/S OF DISTRESS AT THIS TIME. SAFETY PRECAUTIONS IN PLACE. WILL CONTINUE TO MONITOR.
--- NOTE | 2019-08-12 04:19 | NUR ---
PT RESTING IN BED. RESPIRATIONS EVEN AND UNLABORED ON RA. TELE IN PLACE. WILL CONTINUE TO MONITOR.
[2019-08-12 04:30] VITALS: BP 134/69
[2019-08-12 04:45] LABS: HEMATOCRIT 36.6 % (39.0-50.0); HEMOGLOBIN 11.6 g/dl (14.0-18.0); MEAN CELL VOLUME 96.1 fL CALC (80.0-100.0); MEAN CORPUSCULAR HGB 30.4 pG CALC (26.0-32.0); MEAN CORPUSCULAR HGB CONC 31.7 g/dL CAL (32.0-36.0); RED BLOOD COUNT 3.81 mill/uL (4.70-6.10); RED CELL DISTRI WIDTH 13.3 % (11.5-15.5)
[2019-08-12 05:00] LABS: ALBUMIN 3.1 g/dL (3.2-5.0); ALKALINE PHOSPHATASE 105 u/l (38-126); ANION GAP 13 (6-22 (CALC)); BILIRUBIN, TOTAL 0.2 mg/dL (0.0-1.4); BUN 11 mg/dL (8-23); BUN/CREATININE RATIO 16 (12-20 (CALC)); CARBON DIOXIDE 21 mmol/l (22-30); CHLORIDE 110 mmol/l (95-108); CREATININE 0.7 mg/dL (0.7-1.3); GFR > 60 ML/MIN (>=60 (CALC)); GFR FOR AFR.AMER. > 60 ML/MIN (>=60 (CALC)); POTASSIUM 4.7 mmol/l (3.5-5.1); SGOT/AST 22 u/l (19-48); SODIUM 139 mmol/l (137-146); TOTAL PROTEIN 6.9 g/dL (6.3-8.2)
[2019-08-12 07:17] VITALS: BP 145/88
--- NOTE | 2019-08-12 07:17 | NUR ---
PT LAYING IN BED. A&O X3. NO DISTRESS NOTED. PT C/O OF ABD PAIN. MORPHINE GIVEN. NO OTHER NEEDS AT THIS TIME. ASSESSMENT COMPLETED. DISCUSSED POC. CALL LIGHT IN REACH. CONTINUE TO MONITOR.
[2019-08-12] MEDS ORDERED: PREDNISONE20 MG PO (10:40)
[2019-08-12] MEDS ORDERED: CIPROFLOXACN500 MG PO ×2 (10:40)
[2019-08-12 11:11] VITALS: BP 144/81
--- NOTE | 2019-08-12 12:44 | NUR ---
D/C INSTRUCTIONS GIVEN TO PT. IV INTACT UPON REMOVAL.
--- NOTE | 2019-08-12 13:15 | NUR ---
Discharge instructions given. Patient verbalizes understanding of same. Discharged in stable condition via Wheelchair to Home with staff. All belongings sent with pt.
== END 2019-08-12 13:50 | disposition home or self-care (01) | DRG 872 ==
LOC: ED 11:55 → ED-I 14:15 → ED 14:28 → ED-I 14:29 → MS2 14:29
PROVIDERS: Nurse Practitioner Family; ADMIT Internal Medicine; ATTEND Internal Medicine
DX: A41.9 Sepsis, unspecified organism (principal); N12 Tubulo-interstitial nephritis, not specified as acute or chronic; K51.911 Ulcerative colitis, unspecified with rectal bleeding; E11.9 Type 2 diabetes mellitus without complications; J44.9 Chronic obstructive pulmonary disease, unspecified; I48.91 Unspecified atrial fibrillation; I10 Essential (primary) hypertension; T45.515A Adverse effect of anticoagulants, initial encounter; B96.20 Unspecified Escherichia coli [E. coli] as the cause of diseases classified elsewhere; Z86.718 Personal history of other venous thrombosis and embolism; Z86.711 Personal history of pulmonary embolism; Z95.828 Presence of other vascular implants and grafts; Z87.442 Personal history of urinary calculi; R30.0 Dysuria
CPT/HCPCS: G0378; J1650; Q9967

== ENCOUNTER 2019-10-08 12:15 | Emergency (ER) | payer MEDICARE ==
[~2019-10-08] VITALS: Ht 177.8 cm; Wt 110.0 kg
[~2019-10-08 12:15] MED LIST changes: +BUDESONIDE3 MG PO; +CIPROFLOXACN500 MG PO; +OMEPRAZOLE DR20 MG PO; +POT CHLORIDE10 ME5 PO; +PREDNISONE20 MG PO; +STELARA130 MG/26 SC
[2019-10-08] MEDS ORDERED: HYDROCO/APAP1 TA9 PO ×2 (14:48)
[2019-10-08 15:40] VITALS: BP 146/92
== END 2019-10-08 15:40 | disposition home or self-care (01) ==
LOC: ED 12:15
DX: M25.561 Pain in right knee (principal); J44.9 Chronic obstructive pulmonary disease, unspecified; E11.9 Type 2 diabetes mellitus without complications; I25.2 Old myocardial infarction

== ENCOUNTER 2019-12-30 04:52 | Emergency (ER) | payer MEDICARE ==
[~2019-12-30] VITALS: Ht 177.8 cm; Wt 104.5 kg
[~2019-12-30 04:52] MED LIST changes: +HYDROCO/APAP1 TA9 PO
[2019-12-30 05:55] LABS: HEMATOCRIT 38.9 % (39.0-50.0); HEMOGLOBIN 12.7 g/dl (14.0-18.0); IMMATURE GRANULOCYTES 0.6 % (0.0-5.0); MEAN CELL VOLUME 92.2 fL CALC (80.0-100.0); MEAN CORPUSCULAR HGB 30.1 pG CALC (26.0-32.0); MEAN CORPUSCULAR HGB CONC 32.6 g/dL CAL (32.0-36.0); NEUT# 11.43 thou/uL (1.82-7.42); RED BLOOD COUNT 4.22 mill/uL (4.70-6.10); RED CELL DISTRI WIDTH 16.3 % (11.5-15.5)
[2019-12-30 06:13] LABS: BUN 9 mg/dL (8-23); BUN/CREATININE RATIO 7 (12-20 (CALC)); CARBON DIOXIDE 24 mmol/l (22-30); CHLORIDE 103 mmol/l (95-108); CREATININE 1.2 mg/dL (0.7-1.3); GFR 60 ML/MIN (>=60 (CALC)); GFR FOR AFR.AMER. > 60 ML/MIN (>=60 (CALC)); LIPASE 65 u/l (23-300); SGOT/AST 16 u/l (19-48); SODIUM 135 mmol/l (137-146); TOTAL PROTEIN 6.5 g/dL (6.3-8.2)
[2019-12-30 06:14] LABS: ALBUMIN 2.8 g/dL (3.2-5.0); ALKALINE PHOSPHATASE 111 u/l (38-126); ANION GAP 11 (6-22 (CALC)); BILIRUBIN, TOTAL 0.4 mg/dL (0.0-1.4); POTASSIUM 3.3 mmol/l (3.5-5.1)
[2019-12-30 07:49] LABS: URINE BLOOD DIPSTICK TRACE-INTACT (NEGATIVE); URINE COLOR YELLOW; URINE GLUCOSE - DIPSTICK NEGATIVE (NEGATIVE); URINE KETONE TRACE mg/dL (NEGATIVE); URINE LEUK ESTERASE NEGATIVE (NEGATIVE); URINE PH 5.5 (4.5-8.0); URINE PROTEIN - DIPSTICK 30 mg/dL (NEG-TRACE); URINE SPECIFIC GRAVITY 1.025; URINE UROBILINOGEN - DIPSTICK 0.2 E.U./dL (0.2)
[2019-12-30 07:52] LABS: URINE BILIRUBIN - DIPSTICK NEGATIVE (NEGATIVE)
[2019-12-30 08:03] LABS: URINE EPITHELIAL CELLS RARE EPI/hpf (0-FEW); URINE FINE GRAN CAST FEW lpf; URINE MUCUS FEW hpf (NONE-FEW); URINE NITRITE - DIPSTICK NEGATIVE (Negative); URINE WBC 0-2 WBC/hpf (0-5)
[2019-12-30] MEDS ORDERED: CIPROFLOXACN500 MG PO (09:12)
[2019-12-30] MEDS ORDERED: MEDDOSEPAK PO ×2 (09:12)
[2019-12-30 10:31] VITALS: BP 99/66
== END 2019-12-30 10:22 | disposition home or self-care (01) ==
LOC: ED 04:52
PROVIDERS: Family Medicine
DX: K51.00 Ulcerative (chronic) pancolitis without complications (principal); J44.9 Chronic obstructive pulmonary disease, unspecified; E11.9 Type 2 diabetes mellitus without complications; I25.2 Old myocardial infarction
CPT/HCPCS: J1956; Q9967

== ENCOUNTER 2020-01-06 11:52 | Inpatient (IN) | payer MEDICARE ==
[~2020-01-06] VITALS: Ht 177.8 cm; Wt 104.5 kg
[~2020-01-06 11:52] MED LIST changes: +MEDDOSEPAK PO
--- NOTE | 2020-01-06 12:06 | NUR ---
PT ARRIVED TO MED/SURG ROOM 268 IN STABLE CONDITION VIA WHEELCHAIR ACCOMPANIED BY REGISTRATION;PT AMBULATED TO STANDING SCALE AND BEDSIDE;WT AND VS OBTAINED BY VELASQUEZ RANKIN;PT A&O X3, ORIENTED TO ROOM AND CALL LIGHT SYSTEM;PT REPORTS DIARRHEA R/T CROHNS DISEASE AND LOW BLOOD PRESSURE;PT REPORTS CHRONIC PAIN, PAIN SCALE AND REPORTING EDUCATED;ASSESSMENT COMPLETED;RESPIRATIONS EVEN AND UNLABORED ON RA,CLEAR LUNG SOUNDS;ABDOMEN DISTENDED/SOFT ON PALPATION AND ACTIVE IN ALL 4 QUADRANTS,LAST BM 01/05/20;WEAK PEDAL PULSES;SKIN INTACT;#22G STARTED TO LAC ON 1ST ATTEMPT BY THIS WRITTER,ABX TO BE STARTED PER ORDER;ALLERGY BAND APPLIED TO LEFT WRIST;FRESH WATER PROVIDED PER REQUEST;PT DENIES ANY ADDITIONAL NEEDS AT THIS TIME;ENCOURAGED TO CALL FOR ASSISTANCE IF NEEDED;FALL PRECAUTIONS IN PLACE WITH BED IN THE LOWEST POSITION AND CALL LIGHT IN REACH;WILL CONTINUE TO MONITOR
[2020-01-06 12:10] VITALS: BP 88/56
--- NOTE | 2020-01-06 12:33 | NUR ---
RT AT BEDSIDE OBTAINING EKG.
--- NOTE | 2020-01-06 12:53 | NUR ---
LAB AT BEDSIDE
--- NOTE | 2020-01-06 12:56 | NUR ---
HOME MEDICATIONS SENT TO PHARMACY AT THIS TIME.
[2020-01-06 13:13] LABS: HEMATOCRIT 35.5 % (39.0-50.0); HEMOGLOBIN 10.9 g/dl (14.0-18.0); IMMATURE GRANULOCYTES 2.7 % (0.0-5.0); MEAN CELL VOLUME 98.6 fL CALC (80.0-100.0); MEAN CORPUSCULAR HGB 30.3 pG CALC (26.0-32.0); MEAN CORPUSCULAR HGB CONC 30.7 g/dL CAL (32.0-36.0); NEUT# 12.53 thou/uL (1.82-7.42); RED BLOOD COUNT 3.6 mill/uL (4.70-6.10); RED CELL DISTRI WIDTH 16.5 % (11.5-15.5)
[2020-01-06] MEDS ORDERED: LASIX 80 MG TAB80 MG PO (13:17)
[2020-01-06 13:23] LABS: ALBUMIN 3.1 g/dL (3.2-5.0); ALKALINE PHOSPHATASE 57 u/l (38-126); ANION GAP 12 (6-22 (CALC)); BILIRUBIN, TOTAL 0.4 mg/dL (0.0-1.4); BUN 23 mg/dL (8-23); BUN/CREATININE RATIO 18 (12-20 (CALC)); CARBON DIOXIDE 26 mmol/l (22-30); CHLORIDE 104 mmol/l (95-108); CREATININE 1.3 mg/dL (0.7-1.3); GFR 55 ML/MIN (>=60 (CALC)); GFR FOR AFR.AMER. > 60 ML/MIN (>=60 (CALC)); POTASSIUM 3.5 mmol/l (3.5-5.1); SGOT/AST 19 u/l (19-48); SODIUM 139 mmol/l (137-146); TOTAL PROTEIN 6.2 g/dL (6.3-8.2)
--- NOTE | 2020-01-06 13:26 | NUR ---
CRITICAL LACTIC ACID OBTAINED AT THIS TIME BY RESULTING IN 3.8;KIMMIE ANRP NOTIFIED;WILL CONTINUE TO MONITOR
--- NOTE | 2020-01-06 13:29 | NUR ---
IKMMIE ELIZALDE AT BEDSIDE DISCUSSING POC.
[2020-01-06 15:04] VITALS: BP 114/71
--- NOTE | 2020-01-06 15:12 | NUR ---
PT note Patient is screened for rehab intervention and no needs are identified at this time
--- NOTE | 2020-01-06 15:35 | NUR ---
PT APPEARS TO BE SLEEPING IN SEMI FOWLERS POSITION;RESPIRATIONS EVEN AND UNLABORED ON RA;NO S/S OF DISTRESS NOTED;IV FLUIDS INFUSING WITH EASE TO LAC;ASSESSMENT REMAINS UNCHANGED AT THIS TIME;FALL PRECAUTIONS REMAIN IN PLACE WITH BED IN THE LOWEST POSITION AND CALL LIGHT IN REACH;WILL CONTINUE TO MONITOR
--- NOTE | 2020-01-06 17:30 | NUR ---
KIMMIE ANRP NOTIFIED OF CRITICAL LACTIC ACID 3.5, NO NEW ORDERS RECIEVED.WILL CONTINUE TO MONITOR
[2020-01-06 18:26] VITALS: BP 142/78
--- NOTE | 2020-01-06 18:29 | NUR ---
PT DEMANDING TO BE MEDICATED WITH LOPRESSOR 25MG PO AT THIS TIME. BP 142/78 HR 81;PT MEDICATED PER REQUEST;WILL CONTINUE TO MONITOR
[2020-01-06 19:00] VITALS: BP 136/74
--- NOTE | 2020-01-06 19:01 | NUR ---
REPORT FROM DAVID MOLINA. PT NOTED SITTING UP IN BED WATCHING TV. ALERT AND ORIENTED. NO APPARENT DISTRESS NOTED. IV SITE APPEARS HEALTHY WITH IV FLUIDS INFUSING WITHOUT DIFFICULTY. PT DENIES ANY PAIN OR DISCOMFORT AT THIS TIME. DISCUSSED POC. PT VERBALIZED UNDERSTANDING. FRESH WATER PROVIDED UPON REQUEST. CALL LIGHT WITHIN REACH. WILL CONTINUE TO MONITOR.
--- NOTE | 2020-01-06 22:08 | NUR ---
PT REQUESTING HOME MEDICATION [facility] FOR MUSCLE SPASMS. PT STATES HE BROUGHT HIS HOME MEDICATIONS IN AND THEY WERE SENT TO PHARMACY. MEDICATION ORDERED IN JUN BUT NOT AVAILABLE TO NURSING STAFF AT THIS TIME. SHOVE UP PHYSICIAN NOTIFIED OF PT NEED. NO NEW ORDERS RECEIVED AT THIS TIME. PT AGGITATED AND REQUESTING SOMETHING ELSE TO HELP HIM SLEEP. PRN ATIVAN ADMINISTERED AT THIS TIME. WILL CONTINUE TO MONITOR.
--- NOTE | 2020-01-07 02:44 | NUR ---
PT RESTING IN BED WITH EYES CLOSED. NO APPARENT DISYRESS NOTED. RESPIRATIONS EVEN AND UNLABORED. CALL LIGHT WITHIN REACH. WILL CONTINUE TO MONITOR.
[2020-01-07 04:00] VITALS: BP 145/69
[2020-01-07 06:33] LABS: HEMATOCRIT 31.1 % (39.0-50.0); HEMOGLOBIN 9.7 g/dl (14.0-18.0); MEAN CELL VOLUME 97.2 fL CALC (80.0-100.0); MEAN CORPUSCULAR HGB 30.3 pG CALC (26.0-32.0); MEAN CORPUSCULAR HGB CONC 31.2 g/dL CAL (32.0-36.0); RED BLOOD COUNT 3.2 mill/uL (4.70-6.10)
[2020-01-07 06:55] LABS: ALBUMIN 2.5 g/dL (3.2-5.0); ALKALINE PHOSPHATASE 47 u/l (38-126); ANION GAP 8 (6-22 (CALC)); BILIRUBIN, TOTAL 0.5 mg/dL (0.0-1.4); BUN 20 mg/dL (8-23); BUN/CREATININE RATIO 23 (12-20 (CALC)); CARBON DIOXIDE 28 mmol/l (22-30); CHLORIDE 102 mmol/l (95-108); CREATININE 0.9 mg/dL (0.7-1.3); GFR > 60 ML/MIN (>=60 (CALC)); GFR FOR AFR.AMER. > 60 ML/MIN (>=60 (CALC)); POTASSIUM 3.7 mmol/l (3.5-5.1); SGOT/AST 21 u/l (19-48); SODIUM 135 mmol/l (137-146); TOTAL PROTEIN 5.2 g/dL (6.3-8.2)
[2020-01-07 08:00] VITALS: BP 129/74
--- NOTE | 2020-01-07 08:00 | NUR ---
ASSESSMENT IS COMPLTED: IV SITE IS FREE FROM REDNESS OR EDEMA. HR IS REG,PULSES ARE STRONG X4, ABD IS SOFT WITH ACTIVE BS, BREATH SOUNDS ARE CLEAR BILATERALLY, NO C/O PAIN VOICED THIS AM. C/O " HEART FLUTTERING ". INQUIRED ABOUT MEDICATIONS. EXPLAINED THAT " DR IS COMING IN AND WILL DISCUSS HIS MEDICATIONS. VERBALIZED UNDERSTANDING.
--- NOTE | 2020-01-07 08:00 | NUR ---
PATIENT IS ALERT AND ORIENTED X3. ABLE TO MAKE NEEDS KNOWN. RESPIRATIONS EASY ON ROOM AIR. CONTINENT OF BOWEL AND URINE. SKIN WARM AND DRY. #20 L AC INFUSING NS AT 50 ML/HR. TOLERATING WELL. C/O ABD PAIN 6/10 IN THE UPPER QUADRANTS. BED IN LOW POSITION. CALL LIGHT WITHIN REACH.
--- NOTE | 2020-01-07 12:15 | NUR ---
PT IS RELAXING IN A CHAIR WITH NO DISTRESS NOTED. IV SITE IS FREE FROM REDNESS OR EDEMA. CONTINUE TO OSBERVE AND MONITOR.
--- NOTE | 2020-01-07 16:00 | NUR ---
PT IS RELAXING IN THE CHAIR, AND SINGING. IV SITE IS FREE FROM REDNESS OR EDMEA.
[2020-01-07 17:00] VITALS: BP 124/69
[2020-01-07 19:00] VITALS: BP 130/75
--- NOTE | 2020-01-08 | NUR ---
PATIENT RESTING QUIETLY IN BED. EYES CLOSED. RESPIRATIONS EASY ON ROOM AIR. NO ACUTE DISTRESS NOTED. BED IN LOW POSITION. CALL LIGHT WITHIN REACH.
[2020-01-08 01:36] LABS: URINE BILIRUBIN - DIPSTICK NEGATIVE (NEGATIVE); URINE BLOOD DIPSTICK NEGATIVE (NEGATIVE); URINE CLARITY CLEAR; URINE COLOR YELLOW; URINE GLUCOSE - DIPSTICK NEGATIVE (NEGATIVE); URINE KETONE NEGATIVE (NEGATIVE); URINE LEUK ESTERASE NEGATIVE (Negative); URINE NITRITE - DIPSTICK NEGATIVE (Negative); URINE PROTEIN - DIPSTICK NEGATIVE (NEG-TRACE); URINE UROBILINOGEN - DIPSTICK 0.2 E.U./dL (0.2)
[2020-01-08 04:00] VITALS: BP 136/73
--- NOTE | 2020-01-08 04:00 | NUR ---
PATIENT RESTING QUIETLY IN BED. EYES CLOSED. RESPIRATIONS EASY ON ROOM AIR. NO ACUTE DISTRESS NOTED. BED IN LOW POSITION. CALL LIGHT WITHIN REACH.
[2020-01-08 07:16] VITALS: BP 130/75
--- NOTE | 2020-01-08 10:38 | NUR ---
PATIENT ALERT AND OREINTED X4, C/O ABDOMEN DISCOMFORT, STATED THAT HIS PAIN STARTED WHEN HE HAD EGD DONE. PATIENT C/O ABDOMEN PAIN "5", TRAMODOL GIVEN PO. PATIENT'S LUNGS CLEAR, ABDOMEN TENDER, PATIENT ALSO REQUESTED METOPROLOL 25MG.
--- NOTE | 2020-01-08 14:47 | NUR ---
PATIENT STATED THAT HE HAS SORES IN HIS MOUTH AND HIS NOUTH IS BURNING. STUD DRIVER WAS UNABLE TO SEE THE SORES, BUT CHARGE NURSE NOTIFIED THE DOCTOR
[2020-01-08 15:19] VITALS: BP 126/61
[2020-01-08 19:00] VITALS: BP 122/69
--- NOTE | 2020-01-08 19:01 | NUR ---
tHIS MORNING SPOOKE WITH EDUCATION PROGRAM ASSOCIATE R/F PATIENT DIET AND SPEECH EVAL. PATIENT IS NPO, PATIETNT REPOSITONED. ALSO STRAIGHT CATH DONE FOR UA.
--- NOTE | 2020-01-08 20:00 | NUR ---
YPATIENT IS ALERT AND ORIENTED X3. ABLE TO MAKE NEEDS KNOWN. RESPIRATIONS EASY ON ROOM AIR. SKIN WARM AND DRY. PJ HOSE IN PLACE. #20 LAC SALINE LOCKED. CONTINUES ON ABT THERAPY. TOLERATING WELL. CURRENTLY NPO WAITING FOR US OF ABDOMEN. REPORTS DILAUDID EFFECTIVE FOR PAIN RELIEF. BED IN LOW POSITION. CALL LIGHT WITHIN REACH.
--- NOTE | 2020-01-09 | NUR ---
PATIENT IN BED WITH EYES CLOSED. RESPIRATIONS EASY ON ROOM AIR. NO ACUTE DISTRESS OBSERVED. BED IN LOW POSITION. CALL LIGHT WITHIN REACH.
[2020-01-09 04:30] VITALS: BP 129/80
[2020-01-09 08:00] VITALS: BP 132/70
--- NOTE | 2020-01-09 09:00 | NUR ---
PT SEEN AWAKE, ALERT, ORIENTED X 3. LUNGS CLEAR, RA, AMBULATORY IN ROOM. PT NPO FOR ABDOMINAL U/S, WHICH SHOULD BE DONE THIS AM. ABDOMEN IS DISTENDED SOFT, PAIN ACROSS TOP OF ABDOMEN.
--- NOTE | 2020-01-09 13:07 | NUR ---
PT TO U/S AND BACK THIS MORNING, WAS THEN ALLOWED FULL LIQUID DIET. PT TOLERATED WELL. PT WILL ADVANCE TO SOFT DIET FOR SUPPER. PAIN MED PROVIDED ORDERED WHEN REQUESTED BY PT, SEEN TO CONTROL PAIN WELL.
[2020-01-09 15:43] VITALS: BP 140/79
--- NOTE | 2020-01-09 16:19 | NUR ---
PT TOLERATED NOON MEAL FULL LIQUID WELL, WILL ADVANCE TO SOFT DIET FOR SUPPER. PT REMAINS PAINFREE, NO DISTRESS, NO COMPLAINTS.
[2020-01-09 19:00] VITALS: BP 130/75
--- NOTE | 2020-01-09 20:00 | NUR ---
RECEIEVED REPORT FROM MICHAEL GOLDSMITH. ASSESSMENT AND VITALS COMPLETED. RESPIRATIONS ARE STRONG BILATERALLY. LUNG SOUNDS ARE CLEAR. HEART RHYTHM IS NORMAL. BOWEL SOUNDS ARE ACTIVE; C/O OF ABDOMINAL PAIN ACROSS UPPER QUADRANTS. RADIAL AND PEDAL PULSES ARE STRONG WITH NORMAL CPAILLARY REFILL.#22 IN RW, SALINE LOCKED, SITE APPEARS HEALTHY AND PATENT. PT REPORTS PAIN IS MANAGED SINCE RECEIVING PNR MEDICATION. PT DENIES DISCOMFORTS AT THIS TIME. PT ENCOURAGED TO REPORT ANY PAIN. ALL SAFETY AND MEASURES ARE IN PLACE. WILL CONTINUE TO MONITOR.
--- NOTE | 2020-01-09 20:02 | NUR ---
RECEIEVED REPORT FROM MICHAEL GOLDSMITH. ASSESSMENT AND VITALS COMPLETED. RESPIRATIONS ARE STRONG BILATERALLY. LUNG SOUNDS ARE CLEAR. HEART RHYTHM IS NORMAL. BOWEL SOUNDS ARE ACTIVE; C/O OF ABDOMINAL PAIN ACROSS UPPER QUADRANTS. RADIAL AND PEDAL PULSES ARE STRONG WITH NORMAL CPAILLARY REFILL.#22 IN RW, SALINE LOCKED, SITE APPEARS HEALTHY AND PATENT. PT REPORTS PAIN IS MANAGED SINCE RECEIVING PNR MEDICATION. PT DENIES DISCOMFORTS AT THIS TIME. PT ENCOURAGED TO REPORT ANY PAIN. ALL SAFETY AND ISOLATION PRECAUTIONS ARE IN PLACE. WILL CONTINUE TO MONITOR.
--- NOTE | 2020-01-10 00:02 | NUR ---
PT SEEN EYED CLOSED IN NO APPARENT DISTRESS OR DISCOMFORT. CALL OLIVERA WITHIN REACH. WILL CONTINUE TO MONITOR.
--- NOTE | 2020-01-10 03:55 | NUR ---
PT C/O OF PAIN AND NAUSEA. PROVIDED PRN MEDICATION. ADVISED PT TO CALL IF CONDITION DIES NOT IMPROVE. WILL CONTINUE TO MONITOR.
[2020-01-10 04:00] VITALS: BP 137/69
[2020-01-10 05:31] LABS: HEMATOCRIT 31.8 % (39.0-50.0); MEAN CELL VOLUME 96.7 fL CALC (80.0-100.0); MEAN CORPUSCULAR HGB 30.4 pG CALC (26.0-32.0); MEAN CORPUSCULAR HGB CONC 31.4 g/dL CAL (32.0-36.0); RED BLOOD COUNT 3.29 mill/uL (4.70-6.10); RED CELL DISTRI WIDTH 15.9 % (11.5-15.5)
[2020-01-10 05:38] LABS: ALBUMIN 2.6 g/dL (3.2-5.0); ALKALINE PHOSPHATASE 44 u/l (38-126); ANION GAP 8 (6-22 (CALC)); BILIRUBIN, TOTAL 0.5 mg/dL (0.0-1.4); BUN 21 mg/dL (8-23); BUN/CREATININE RATIO 28 (12-20 (CALC)); CARBON DIOXIDE 27 mmol/l (22-30); CHLORIDE 103 mmol/l (95-108); CREATININE 0.8 mg/dL (0.7-1.3); GFR > 60 ML/MIN (>=60 (CALC)); GFR FOR AFR.AMER. > 60 ML/MIN (>=60 (CALC)); POTASSIUM 4.3 mmol/l (3.5-5.1); SGOT/AST 17 u/l (19-48); SODIUM 134 mmol/l (137-146); TOTAL PROTEIN 5.3 g/dL (6.3-8.2)
--- NOTE | 2020-01-10 07:15 | NUR ---
REPORT RECEIVED FROM UNIT REACTOR OPERATOR. PT SITTING UP IN BED; ALERT AND ORIENTED. C/O 7/10 SHARP/BLOATING UPPER ABDOMINAL PAIN. ALSO C/O CONSTANT NAUSEA; REPORTS THAT ZOFRAN IS EFFECTIVE, BUT ONLY FOR A SHORT TIME; STATES THAT HE TOLERATED HIS SOFT BREAKFAST WELL. RESPIRATIONS EVEN AND UNLABORED ON ROOM AIR. PLAN OF CARE REVIEWED. PT ENCOURAGED TO VERBALIZE CONCERNS. STATES UNDERSTANDING AND REQUESTS A METOPROLOL FOR PALPITATIONS OR HOW HE DESCRIBES A "NERVOUS HEART." SAFETY MEASURES IN PLACE. CALL LIGHT WITHIN REACH.
[2020-01-10 08:08] VITALS: BP 124/70
--- NOTE | 2020-01-10 09:00 | NUR ---
LORTAB, METOPROLOL, AND MAGIC MOUTH WASH ALL GIVEN WITH SCHEDULED AM MEDS. PT SITTING UP ON EDGE OF BED. IV FLUIDS INFUSING AT KVO; IV SITE APPEARS HEALTHY AND FLUSHES.
--- NOTE | 2020-01-10 10:33 | NUR ---
ZOFRAN GIVEN FOR NAUSEA. DISCONNECTED FROM FLUIDS FOR SHOWER.
--- NOTE | 2020-01-10 13:30 | NUR ---
LORAB GIVEN PER REQUEST FROM PT FOR 610 UPPER ABDOMINAL PAIN. CIPRO INFUSING AT THIS TIME; IV SITE APPEARS HEALTHY. CALL LIGHT WTIHIN REACH.
[2020-01-10 16:00] VITALS: BP 153/82
--- NOTE | 2020-01-10 17:21 | NUR ---
PT RESTING IN BED SEMI FOWLERS; STATES THAT AFTER BUMPING HIS STOMACH HE EXPERIENCED SEVERE PAIN, BUT IT HAS SINCE SUBSIDED. LORTAB GIVEN NOW. NO OTHER REQUESTS OR CONCERNS AT THIS TIME. CALL LIGHT WITHIN REACH.
[2020-01-10 19:00] VITALS: BP 148/78
--- NOTE | 2020-01-10 20:08 | NUR ---
PT MEDICATED FOR NAUSEA, DENIES ANY OTHER NEEDS. ASSESSMENT COMPLETED AT THIS TIME. CALL LIGHT W/IN REACH.
--- NOTE | 2020-01-10 23:07 | NUR ---
PT MEDICATED FOR PAIN 10/14 GENERALIZED. URINAL EMPTIED OF 300CC CLEAR YELLOW URINE. PT DENIES ANY OTHER NEEDS AT THIS TIME. CALL LIGHT W/IN REACH.
--- NOTE | 2020-01-11 00:44 | NUR ---
PT MEDICATED W/IV ANTIBIOTIC THERAPY. PT REPORTS BEING UNABLE TO SLEEP, NO DISTRESS REPORTED. WATCHING TV, ASKING FOR COFFEE IF AVAILABLE/WILL PROVIDE. ENCOURAGED HIM TO CALL IF ANY OTHER NEEDS ARISE. DENIES ANY OTHER NEEDS AT THIS TIME.
[2020-01-11 04:00] VITALS: BP 114/53
--- NOTE | 2020-01-11 05:22 | NUR ---
PT MEDICATED W/IV ANTIBIOTIC THERAPY AND FOR NAUSEA, PAIN 5/10 ON PAIN SCALE REPORTED IN UPPER ABD AND GENERALIZED. PT TALKING ABOUT THE NEWS ON TV, ETC. NO S/O DISTRESS NOTED. ENCOURAGED PT TO CALL NEEDS ARISE. CALL LIGHT IN HAND.
[2020-01-11 07:15] VITALS: BP 147/79
--- NOTE | 2020-01-11 07:45 | NUR ---
REPORT RECEIVED FROM AGUS COSTA. PT PT SITTING UP ON EDGE OF BED; ALERT AND OREINTED. C/O 7/10 UPPER ABDOMINAL PAIN. RESPIRATIONS EVEN AND UNLABORED ON ROOM AIR. LUNGS ARE CLEAR. 1+ ANKLE EDEMA. VSS. PLAN OF CARE REVIEWED. PT ENCOURAGED TO VERBALIZE CONCERNS. STATES UNDERSTANDING. SAFETY MEASURES IN PLACE. CALL LIGHT WITHIN REACH.
--- NOTE | 2020-01-11 08:35 | NUR ---
DR. BROWN AT BEDSIDE.
--- NOTE | 2020-01-11 09:05 | NUR ---
LORTAB AND ATIVAN GIVEN WITH AM MEDS; PT VERY ANXIOUS WHEN SPEAKING WITH DR. BROWN. IV FLUIDS INFUSING WITHOUT DIFFICULTY; IV SITE APPEARS HEALTHY.
[2020-01-11] MEDS ORDERED: PREDNISONE10 MG PO (11:01)
[2020-01-11] MEDS ORDERED: METRONIDAZOL500 MG PO (11:01)
[2020-01-11] MEDS ORDERED: CIPROFLOXACN500 MG PO (11:01)
--- NOTE | 2020-01-11 12:20 | NUR ---
IV site discontinued, cath intact. No edema , no redness, voices no discomfort.
--- NOTE | 2020-01-11 12:23 | NUR ---
Discharge instructions given. Patient verbalizes understanding of same. Discharged in stable condition via Wheelchair to Home with spouse. All belongings sent with pt.
== END 2020-01-11 12:24 | disposition home or self-care (01) | DRG 386 ==
LOC: MS2 11:52
PROVIDERS: Nurse Practitioner; Nurse Practitioner Family; ADMIT Internal Medicine; ATTEND Internal Medicine
DX: K51.90 Ulcerative colitis, unspecified, without complications (principal); E87.2 Acidosis; I95.9 Hypotension, unspecified; I48.0 Paroxysmal atrial fibrillation; E11.9 Type 2 diabetes mellitus without complications; J44.9 Chronic obstructive pulmonary disease, unspecified; Z86.711 Personal history of pulmonary embolism; Z86.718 Personal history of other venous thrombosis and embolism; Z20.828 Contact with and (suspected) exposure to other viral communicable diseases; E11.40 Type 2 diabetes mellitus with diabetic neuropathy, unspecified; E11.69 Type 2 diabetes mellitus with other specified complication; E78.49 Other hyperlipidemia; K50.018 Crohn's disease of small intestine with other complication; M06.9 Rheumatoid arthritis, unspecified; R82.90 Unspecified abnormal findings in urine; R19.7 Diarrhea, unspecified

== ENCOUNTER 2020-01-14 08:08 | Emergency (ER) | payer MEDICARE ==
[~2020-01-14] VITALS: Ht 177.8 cm; Wt 115.0 kg
[~2020-01-14 08:08] MED LIST changes: +LASIX 80 MG TAB80 MG PO; +METRONIDAZOL500 MG PO
[2020-01-14 08:40] LABS: HEMATOCRIT 31.7 % (39.0-50.0); HEMOGLOBIN 10.1 g/dl (14.0-18.0); MEAN CELL VOLUME 97.2 fL CALC (80.0-100.0); MEAN CORPUSCULAR HGB CONC 31.9 g/dL CAL (32.0-36.0); NEUT# 12.29 thou/uL (1.82-7.42); RED BLOOD COUNT 3.26 mill/uL (4.70-6.10); RED CELL DISTRI WIDTH 16.2 % (11.5-15.5)
[2020-01-14 08:58] LABS: URINE BILIRUBIN - DIPSTICK NEGATIVE (NEGATIVE); URINE BLOOD DIPSTICK TRACE-INTACT (NEGATIVE); URINE COLOR YELLOW; URINE GLUCOSE - DIPSTICK 500 mg/dL (NEGATIVE); URINE KETONE NEGATIVE (NEGATIVE); URINE LEUK ESTERASE NEGATIVE (NEGATIVE); URINE NITRITE - DIPSTICK NEGATIVE (Negative); URINE PROTEIN - DIPSTICK TRACE mg/dL (NEG-TRACE); URINE SPECIFIC GRAVITY >=1.030; URINE UROBILINOGEN - DIPSTICK 0.2 E.U./dL (0.2)
[2020-01-14 09:28] LABS: ACT PARTIAL THROMBO TIME 22.7 SECONDS (20.0-32.5); INTERNATIONAL NORMALIZED RATIO 1.1 RATIO (0.7-1.3); PROTHROMBIN TIME 10.9 SECONDS (9.0-12.5)
[2020-01-14 09:31] LABS: ALBUMIN 2.8 g/dL (3.2-5.0); ALKALINE PHOSPHATASE 47 u/l (38-126); ANION GAP 8 (6-22 (CALC)); BILIRUBIN, TOTAL 0.3 mg/dL (0.0-1.4); BUN 18 mg/dL (8-23); BUN/CREATININE RATIO 23 (12-20 (CALC)); CARBON DIOXIDE 25 mmol/l (22-30); CHLORIDE 112 mmol/l (95-108); CPK 50 u/l (52-200); CREATININE 0.8 mg/dL (0.7-1.3); ETHYL ALCOHOL 0 mg/dl (0-30); GFR > 60 ML/MIN (>=60 (CALC)); GFR FOR AFR.AMER. > 60 ML/MIN (>=60 (CALC)); LIPASE 93 u/l (23-300); MAGNESIUM 1.6 mg/dL (1.6-2.3); POTASSIUM 3.5 mmol/l (3.5-5.1); SGOT/AST 18 u/l (19-48); TOTAL PROTEIN 5.4 g/dL (6.3-8.2)
[2020-01-14 09:32] LABS: SODIUM 141 mmol/l (137-146)
[2020-01-14 12:00] VITALS: BP 160/86
[2020-01-14] MEDS ORDERED: PROTONIX40 M2 PO (12:20)
[2020-01-14] MEDS ORDERED: ZOLPIDEM ER12.5 MG PO (12:21)
[2020-01-14] MEDS ORDERED: FUROSEMIDE20 MG PO (12:45)
--- NOTE | 2020-01-16 07:59 | NUR ---
PRELIM BLOOD CX RESULTS SHOW GRAM POSITIVE COCCI IN 2 AEROBIC AND 1 ANAEROBIC BOTTLE. PT WAS XFER TO [facility]. RESULTS CALLED TO NURSE VALENTIN AND FAXED TO [phone]. WILL F/U WITH FINAL
--- NOTE | 2020-01-18 13:56 | NUR ---
Final blood culture results of enterococcus faecalis growing in 3/4 vials called and faxed to nurse Nancy at [facility] on 01/17/20 @1600.
== END 2020-01-14 12:00 | disposition short-term general hospital (02) ==
LOC: ED 08:08
PROVIDERS: Family Medicine
PROC: 06HY33Z Insertion of Infusion Device into Lower Vein, Percutaneous Approach (ICD-10-PCS; principal; 2020-01-14)
DX: I21.4 Non-ST elevation (NSTEMI) myocardial infarction (principal); I11.0 Hypertensive heart disease with heart failure; I50.9 Heart failure, unspecified; E11.9 Type 2 diabetes mellitus without complications; E66.9 Obesity, unspecified; J44.9 Chronic obstructive pulmonary disease, unspecified; I25.2 Old myocardial infarction; E83.119 Hemochromatosis, unspecified; K50.90 Crohn's disease, unspecified, without complications; Z79.52 Long term (current) use of systemic steroids; Z20.828 Contact with and (suspected) exposure to other viral communicable diseases
CPT/HCPCS: J1644

== ENCOUNTER 2020-02-14 14:46 | Inpatient (IN) | payer MEDICARE ==
[~2020-02-14] VITALS: Ht 177.8 cm; Wt 107.6 kg
[2020-02-14] VITALS (11 sets, daily range): BP systolic 118–152; BP diastolic 68–92
[~2020-02-14 14:46] MED LIST changes: +FUROSEMIDE20 MG PO; +PROTONIX40 M2 PO
--- NOTE | 2020-02-14 15:05 | NUR ---
PT ADMITTED TO ICU BED [address] ACOSTA DIRECT ADMIT FRO AFLUTTER/RVR. . PT A&OX4, ABLE TO MAKE NEEDS KNOWN. ST ON TELEMETRY, HR 141. PT DENIES CP, IS SOB WITH EXERTION. PT STATES SOB IS NORMAL FOR HIM POST HEART ATTACK/WITH 2 STENTS PLACED AT [facility] 01-14-20. SA02@ 96%RA. LS CLEAR THROUGHOUT, REMAIN SOB WITH EXERTION. ABDOMEN GROSSLY DISTENDED, TENDER TO TOUCH, PT REPORTS COLITIS. LBM TODAY X 3, LOOSE. PT WEIGHED ON BEDSCALE, 237.2LBS.NEW IV STARTED TO RW 20G, FLUSHES WELL, PT TOLERATED WELL. PT ORIENTED TO ROOM, UNIT AND CALL LIGHT. WILL MONITOR.
--- NOTE | 2020-02-14 15:25 | NUR ---
RADIOLOGY AT BEDSIDE FOR CXR. PT TOLERATED WELL.
--- NOTE | 2020-02-14 15:30 | NUR ---
NATY RT AT BEDSIDE FOR EKG. PT TOLERATED WELL
--- NOTE | 2020-02-14 15:57 | NUR ---
LAB AT BEDSIDE FOR BLOOD DRAW.
[2020-02-14 16:01] LABS: HEMOGLOBIN 10.5 g/dl (14.0-18.0); MEAN CELL VOLUME 93.7 fL CALC (80.0-100.0); MEAN CORPUSCULAR HGB 28.9 pG CALC (26.0-32.0); MEAN CORPUSCULAR HGB CONC 30.9 g/dL CAL (32.0-36.0); RED BLOOD COUNT 3.63 mill/uL (4.70-6.10); RED CELL DISTRI WIDTH 14.7 % (11.5-15.5)
--- NOTE | 2020-02-14 17:00 | NUR ---
UA OBTAINED VIA CLEAN CATCH. SENT TO LAB.
[2020-02-14 17:16] LABS: ALKALINE PHOSPHATASE 59 u/l (38-126); BILIRUBIN, TOTAL 0.2 mg/dL (0.0-1.4); BUN 23 mg/dL (8-23); BUN/CREATININE RATIO 25 (12-20 (CALC)); CHLORIDE 110 mmol/l (95-108); CREATININE 0.9 mg/dL (0.7-1.3); GFR > 60 ML/MIN (>=60 (CALC)); GFR FOR AFR.AMER. > 60 ML/MIN (>=60 (CALC)); SGOT/AST 17 u/l (19-48); SODIUM 138 mmol/l (137-146)
[2020-02-14 17:21] LABS: ALBUMIN 3.7 g/dL (3.2-5.0); ANION GAP 13 (6-22 (CALC)); CARBON DIOXIDE 19 mmol/l (22-30); TOTAL PROTEIN 7.2 g/dL (6.3-8.2)
[2020-02-14 17:36] LABS: URINE BILIRUBIN - DIPSTICK NEGATIVE (NEGATIVE); URINE BLOOD DIPSTICK SMALL (NEGATIVE); URINE CLARITY CLEAR; URINE COLOR YELLOW; URINE GLUCOSE - DIPSTICK 250 mg/dL (NEGATIVE); URINE KETONE NEGATIVE (NEGATIVE); URINE LEUK ESTERASE NEGATIVE (Negative); URINE NITRITE - DIPSTICK NEGATIVE (Negative); URINE PROTEIN - DIPSTICK NEGATIVE (NEG-TRACE); URINE SPECIFIC GRAVITY >=1.030; URINE UROBILINOGEN - DIPSTICK 0.2 E.U./dL (0.2)
[2020-02-14 17:38] LABS: URINE RBC 0-2 RBC/hpf (0-5); URINE WBC 0-2 WBC/hpf (0-5)
--- NOTE | 2020-02-14 17:47 | NUR ---
DR. ACOSTA CALLED FOR UPDATE. NEW ORDERS RECIEVED TO REPEAT EKG AT 2100 AND SEND HIM A COPY PRIOR TO MEDICATING.
--- NOTE | 2020-02-14 18:09 | NUR ---
PT FAMILY BROUGHT PT PHONE DOORSHAKER AND MEDICATION. MEDICATION HELD AT NS IT IS NOT PT PRESCRIPTION.
--- NOTE | 2020-02-14 18:14 | NUR ---
LAB AT BEDSIDE FOR BLOOD DRAW.
[2020-02-14] MEDS ORDERED: ASPIRIN ADULT L81 M2 PO (19:00)
[2020-02-14] MEDS ORDERED: BRILINTA90 MG PO (19:00)
--- NOTE | 2020-02-14 21:25 | NUR ---
RT WADNER CALLED TO NOTIFY EKG ORDER PLACED FROM DAYSHIFT.
[2020-02-14] MEDS ORDERED: PREDNISONE10 MG PO (22:29)
--- NOTE | 2020-02-14 22:30 | NUR ---
PATIENT IS AWAKE, WATCHS TV. NO ACUTE DISTRES SHOWN. ABLE TO SWALLOW HIS MEDICATIONS. MEDICATION RECONCILIATION UPDATED. ON RA, NO SOB NOTED. NURSE ASSESSMENT PERFORMED. COMPLAINS OF ARTHRITIS PAIN AND ABDOMEN PAIN. HAS TRAMADOL AVAILABLE AND WILL PROVIDE EVERY 6 HRS. NURSE ASSESSMENT PERFORMED. EKG WAS DONE AND DAVE WAS NOTIFIED, ORDERS TO GIVE IV DIGOXIN 0.25 MG. SELF REPOSITIONS. CALL LIGHT WITHIN REACH.
[2020-02-14] MEDS ORDERED: LIPITOR20 M1 PO (22:35)
--- NOTE | 2020-02-14 22:44 | NUR ---
NOTIFIED DR ACOSTA OF MEDICATIONS WERE UPDATED, NEW ORDERS GIVEN TO START AND DISCONTINUE WHAT PATIENT IS NOT TAKING CURRENTLY.
--- NOTE | 2020-02-14 23:40 | NUR ---
TYLENOL GIVEN PER PATIENT REQUEST FOR COMPLAINTS OF HEADACHE. NO OTHER COMPLAINTS. IS AWAKE, WATCHES TV. CALL LIGHT WITHIN REACH.
[2020-02-15] VITALS (15 sets, daily range): BP systolic 118–153; BP diastolic 62–83
--- NOTE | 2020-02-15 04:16 | NUR ---
TRAMADOL GIVEN FOR PAIN. NO OTHER COMPLAINTS. EMPTIED 225 ML OF URINE. CALL LIGHT WITHIN REACH.
[2020-02-15 05:09] LABS: ANION GAP 10 (6-22 (CALC)); BUN 20 mg/dL (8-23); BUN/CREATININE RATIO 24 (12-20 (CALC)); CHLORIDE 108 mmol/l (95-108); CREATININE 0.8 mg/dL (0.7-1.3); GFR > 60 ML/MIN (>=60 (CALC)); GFR FOR AFR.AMER. > 60 ML/MIN (>=60 (CALC)); POTASSIUM 4.2 mmol/l (3.5-5.1); SODIUM 138 mmol/l (137-146)
[2020-02-15 05:19] LABS: CARBON DIOXIDE 24 mmol/l (22-30)
--- NOTE | 2020-02-15 06:45 | NUR ---
RECIEVED REPORT FROM AGUS ZAVALA. ASSUMED PT CARE.
--- NOTE | 2020-02-15 08:30 | NUR ---
DR. BROWN AT BEDSIDE FOR ASSESSMENT AND TO DISCUSS PLAN OF CARE. NEW ORDERS RECIEVED.
--- NOTE | 2020-02-15 09:00 | NUR ---
PT A&0X4, ABLE TO MAKE NEEDS KNOWN. HEPARIN GTT CONTINES. ASSESSMENT COMPLETE. CALL LIGHT IN REACH. WILL MONITOR.
[2020-02-15] MEDS ORDERED: LOPRESSOR 550 MG/TAB PO (09:09)
--- NOTE | 2020-02-15 11:00 | NUR ---
PT GIVEN CBB, FULL LINEN CHANGE. PT TOLERATED WELL.
--- NOTE | 2020-02-15 13:00 | NUR ---
DR. LI AT BEDSIDE FOR ASSESSMENT AND TO DISCUSS PLAN OF CARE, NEW ORDERS RECIEVED.
--- NOTE | 2020-02-15 14:15 | NUR ---
PT TRANSFERRED TO ICU BED 7. PT TOLERATED TRANSFER WELL.
--- NOTE | 2020-02-15 16:00 | NUR ---
PT RESSTING IN BED. MULTIPLE UNSUCCESSFUL ATTEMPTS MADE TO SECURE A LINE FOR CTA MADE. PT TOLERATED. WILL NOTIFY
--- NOTE | 2020-02-15 17:32 | NUR ---
DR. BROWN NOTIFIED TO UPDATE ON PT STATUS AND THAT UNSUCCESSFUL TO SECURE A LINE FOR CTA.
--- NOTE | 2020-02-15 20:00 | NUR ---
PATIENT AWAKE IN BED. SUPINE. RESPIRATIONS EASY ON ROOM AIR. C/O PAIN OF 4 OF 10 TO ABDOMEN, HEAD, JOINTS. ASSESSMENT COMPLETE AND CHARTED. ON TELEMETRY RUNNING SR IN THE 90S. NO ACUTE DISTRESS NOTED. MONITORING.
--- NOTE | 2020-02-15 20:00 | NUR ---
PATIENT OWN MEDICATION BEGINNING COUNT 12.3 TABLETS OF ZOLPIDEM ER 12.5MG. BROUGHT IN. COUNTED AND VERIFIED BY SALLY GOLDSMITH AND SYLVIA GOLDSMITH.
--- NOTE | 2020-02-16 00:13 | NUR ---
PATIENT AWAKE IN BED AT THIS TIME. NO ACUTE DISTRESSN NOTED. TELEMETRY RUNNING SINUS RHYTHM 92BPM. MONITORING.
[2020-02-16 02:00] VITALS: BP 118/67
[2020-02-16 04:00] VITALS: BP 128/73
--- NOTE | 2020-02-16 04:10 | NUR ---
PATIENT RESTING QUIETLY. TRAMADOL 50 MG PO GIVEN ORDERED FOR PAIN 4 OF 10. NO ACUTE DISTRESS NOTED. BED IN LOW POSITION. CALL LIGHT WITHIN REACH. MONITORING.
--- NOTE | 2020-02-16 06:51 | NUR ---
REPORT RECEIVED FROM BISQUE GRADER. PT ALERT/ORIENTED X4, RESTING QUIETLY ON STRETCHER, NO COMPLAINTS AT THIS TIME
[2020-02-16 08:10] VITALS: BP 137/74
--- NOTE | 2020-02-16 08:36 | NUR ---
IV ACCESS IN RAC OBTAINED FOR CTA SCAN ORDERED. CALLED TO XRAY AND THEY WILL LET ME KNOW WHEN IT CAN BE DONE
--- NOTE | 2020-02-16 10:30 | NUR ---
PT TAKEN PER W/C TO XRAY FOR CTA OF CHEST.
--- NOTE | 2020-02-16 11:00 | NUR ---
PT RETURNED FROM XRAY, NO COMPLAINTS AT THIS TIME, VITAL SIGNS STABLE. SITTING ON SIDE OF BED TALKING ON PHONE TO FAMILY
[2020-02-16] MEDS ORDERED: FLECAINIDE50 MG PO (11:50)
--- NOTE | 2020-02-16 12:30 | NUR ---
PT INA AREVALO , NO COMPLAINTS OF PAIN, ADVISED THAT CTA CAME BACK NEGATIVE AND WAS WAITING ON ORDERS FOR DISCHARGE
[2020-02-16 13:46] VITALS: BP 140/80
--- NOTE | 2020-02-16 14:15 | NUR ---
IV/S D/C'D AND WRAPPED IN JYOTI JIMENEZ SITE HEALTHY. PT TRYING TO FIND RIDE HOME, A FRIEND IS TO PICK PT UP AROUND 3.
--- NOTE | 2020-02-16 15:16 | NUR ---
PT DISCHARGED AND TAKEN TO OUTSIDE ER DOORS FOR RIDE HOME PER W/C AND 3 BOTTLES OF HIS HOME MEDICATIONS WITH HIM, 2 BOTTLES OF AMBIEN AND 1 OF BRILLINTA
== END 2020-02-16 15:00 | disposition home health service (06) | DRG 281 ==
LOC: ICU 14:46
PROVIDERS: ADMIT Internal Medicine; ATTEND Internal Medicine
DX: I48.92 Unspecified atrial flutter (principal); I21.4 Non-ST elevation (NSTEMI) myocardial infarction; K50.90 Crohn's disease, unspecified, without complications; I48.0 Paroxysmal atrial fibrillation; I25.10 Atherosclerotic heart disease of native coronary artery without angina pectoris; J44.9 Chronic obstructive pulmonary disease, unspecified; E11.9 Type 2 diabetes mellitus without complications; G89.4 Chronic pain syndrome; Z95.5 Presence of coronary angioplasty implant and graft; Z79.82 Long term (current) use of aspirin; Z79.02 Long term (current) use of antithrombotics/antiplatelets; Z86.718 Personal history of other venous thrombosis and embolism; Z86.711 Personal history of pulmonary embolism; Z95.828 Presence of other vascular implants and grafts; Z20.828 Contact with and (suspected) exposure to other viral communicable diseases
CPT/HCPCS: J1160; Q9967

== ENCOUNTER 2020-06-22 12:00 | Emergency (ER) | payer MEDICARE ==
[~2020-06-22] VITALS: Ht 177.8 cm; Wt 115.0 kg
[~2020-06-22 12:00] MED LIST changes: +ALLERGY RELF10 M3 PO; +ASPIRIN ADULT L81 M2 PO; +BRILINTA90 MG PO; +CARISOPRODOL350 M1 PO; +CHOLESTYRAMINE4 G1 PO; +FLECAINIDE100 MG PO; +FLECAINIDE50 MG PO; +HYDROCODONE/ACE1 TAB PO; +LIPITOR20 M1 PO; +LOPRESSOR 550 MG/TAB PO; +PROBIOTIC PO; +SYMBICORT1 AE1 IN; +TYLENOL 8 HOUR650 MG PO; +VISTARIL25 MG PO; +VITAMIN D PO
[2020-06-22 14:00] LABS: HEMATOCRIT 32.8 % (39.0-50.0); HEMOGLOBIN 9.7 g/dl (14.0-18.0); IMMATURE GRANULOCYTES 0.7 % (0.0-5.0); MEAN CELL VOLUME 89.1 fL CALC (80.0-100.0); MEAN CORPUSCULAR HGB 26.4 pG CALC (26.0-32.0); MEAN CORPUSCULAR HGB CONC 29.6 g/dL CAL (32.0-36.0); NEUT# 16.31 thou/uL (1.82-7.42); RED BLOOD COUNT 3.68 mill/uL (4.70-6.10); RED CELL DISTRI WIDTH 25.3 % (11.5-15.5)
[2020-06-22 14:30] LABS: ALKALINE PHOSPHATASE 49 u/l (38-126); ANION GAP 15 (6-22 (CALC)); BILIRUBIN, TOTAL 0.5 mg/dL (0.0-1.4); BUN 25 mg/dL (8-23); BUN/CREATININE RATIO 18 (12-20 (CALC)); CARBON DIOXIDE 22 mmol/l (22-30); CHLORIDE 105 mmol/l (95-108); CREATININE 1.4 mg/dL (0.7-1.3); GFR 50 ML/MIN (>=60 (CALC)); GFR FOR AFR.AMER. > 60 ML/MIN (>=60 (CALC)); LIPASE 60 u/l (23-300); POTASSIUM 4.3 mmol/l (3.5-5.1); SGOT/AST 22 u/l (19-48); SODIUM 138 mmol/l (137-146); TOTAL PROTEIN 7.4 g/dL (6.3-8.2)
[2020-06-22 14:34] LABS: INTERNATIONAL NORMALIZED RATIO 1.1 RATIO (0.7-1.3); PROTHROMBIN TIME 10.7 SECONDS (9.0-12.5)
[2020-06-22 21:36] VITALS: BP 103/51
== END 2020-06-22 22:30 | disposition short-term general hospital (02) ==
LOC: ED 12:00
DX: K51.911 Ulcerative colitis, unspecified with rectal bleeding (principal); E87.2 Acidosis; J44.9 Chronic obstructive pulmonary disease, unspecified; E11.9 Type 2 diabetes mellitus without complications; E83.119 Hemochromatosis, unspecified; I25.2 Old myocardial infarction
CPT/HCPCS: Q9967

== ENCOUNTER 2020-10-16 14:19 | Emergency (ER) | payer MEDICARE ==
[~2020-10-16] VITALS: Ht 177.8 cm; Wt 90.9 kg
[2020-10-16 15:36] LABS: URINE BILIRUBIN - DIPSTICK NEGATIVE (NEGATIVE); URINE BLOOD DIPSTICK LARGE (NEGATIVE); URINE COLOR YELLOW; URINE GLUCOSE - DIPSTICK NEGATIVE (NEGATIVE); URINE KETONE TRACE mg/dL (NEGATIVE); URINE LEUK ESTERASE TRACE (NEGATIVE); URINE NITRITE - DIPSTICK NEGATIVE (Negative); URINE PROTEIN - DIPSTICK NEGATIVE (NEG-TRACE); URINE SPECIFIC GRAVITY >=1.030; URINE UROBILINOGEN - DIPSTICK 0.2 E.U./dL (0.2)
[2020-10-16] MEDS ORDERED: LIPITOR10 M1 PO (15:37)
[2020-10-16 15:38] LABS: URINE RBC >100 RBC/hpf (0-5)
[2020-10-16] MEDS ORDERED: ZOFRAN4 M1 PO (15:38)
[2020-10-16 15:39] LABS: URINE BACTERIA FEW hpf; URINE SQUAMOUS EPITHELIAL CELL RARE EPI/hpf (0-FEW)
[2020-10-16] MEDS ORDERED: FLECAINIDE100 MG PO (15:40)
[2020-10-16] MEDS ORDERED: STOOL SOFTENER100 M1 PO (15:40)
[2020-10-16] MEDS ORDERED: METHOCARBAMOL500 MG PO (15:41)
[2020-10-16] MEDS ORDERED: METOPROL TAR25 MG PO (15:41)
[2020-10-16 16:20] LABS: HEMOGLOBIN 9.9 g/dl (14.0-18.0); IMMATURE GRANULOCYTES 0.5 % (0.0-5.0); MEAN CORPUSCULAR HGB 27.9 pG CALC (26.0-32.0); MEAN CORPUSCULAR HGB CONC 30.4 g/dL CAL (32.0-36.0); NEUT# 16.43 thou/uL (1.82-7.42); RED BLOOD COUNT 3.55 mill/uL (4.70-6.10); RED CELL DISTRI WIDTH 18.8 % (11.5-15.5)
[2020-10-16 16:26] LABS: HEMATOCRIT 32.6 % (39.0-50.0); MEAN CELL VOLUME 91.8 fL CALC (80.0-100.0)
[2020-10-16 16:34] LABS: ALBUMIN 3.1 g/dL (3.2-5.0); ALKALINE PHOSPHATASE 75 u/l (38-126); ANION GAP 14 (6-22 (CALC)); BILIRUBIN, TOTAL 0.5 mg/dL (0.0-1.4); BUN 17 mg/dL (8-23); BUN/CREATININE RATIO 15 (12-20 (CALC)); CARBON DIOXIDE 23 mmol/l (22-30); CHLORIDE 104 mmol/l (95-108); CREATININE 1.2 mg/dL (0.7-1.3); GFR 60 ML/MIN (>=60 (CALC)); GFR FOR AFR.AMER. > 60 ML/MIN (>=60 (CALC)); POTASSIUM 4.2 mmol/l (3.5-5.1); SGOT/AST 19 u/l (19-48); SODIUM 137 mmol/l (137-146); TOTAL PROTEIN 6.8 g/dL (6.3-8.2)
[2020-10-16 21:09] VITALS: BP 121/69
== END 2020-10-16 21:09 | disposition short-term general hospital (02) ==
LOC: ED 14:19
DX: K94.02 Colostomy infection (principal); L03.311 Cellulitis of abdominal wall; D64.9 Anemia, unspecified; R31.9 Hematuria, unspecified; I10 Essential (primary) hypertension; E11.9 Type 2 diabetes mellitus without complications; J44.9 Chronic obstructive pulmonary disease, unspecified; E83.119 Hemochromatosis, unspecified; I25.2 Old myocardial infarction; Y83.3 Surgical operation with formation of external stoma as the cause of abnormal reaction of the patient, or of later complication, without mention of misadventure at the time of the procedure; Z90.49 Acquired absence of other specified parts of digestive tract; Z20.822 Contact with and (suspected) exposure to COVID-19
CPT/HCPCS: Q9967

== ENCOUNTER 2020-10-19 11:59 | Emergency (ER) | payer MEDICARE ==
[~2020-10-19] VITALS: Ht 177.8 cm; Wt 102.0 kg
[~2020-10-19 11:59] MED LIST changes: +LIPITOR10 M1 PO; +METHOCARBAMOL500 MG PO; +STOOL SOFTENER100 M1 PO; +ZOFRAN4 M1 PO
[2020-10-19 13:41] VITALS: BP 131/67
== END 2020-10-19 13:58 | disposition home or self-care (01) ==
LOC: ED 11:59
DX: Z43.3 Encounter for attention to colostomy (principal); K50.90 Crohn's disease, unspecified, without complications; E11.9 Type 2 diabetes mellitus without complications; I10 Essential (primary) hypertension; J44.9 Chronic obstructive pulmonary disease, unspecified; E83.119 Hemochromatosis, unspecified; I25.2 Old myocardial infarction

== ENCOUNTER 2020-10-22 05:03 | Emergency (ER) | payer MEDICARE ==
[~2020-10-22] VITALS: Ht 177.8 cm; Wt 103.0 kg
[2020-10-22 06:06] VITALS: BP 122/69
== END 2020-10-22 06:08 | disposition home or self-care (01) ==
LOC: ED 05:03
DX: Z43.3 Encounter for attention to colostomy (principal); E11.9 Type 2 diabetes mellitus without complications; I10 Essential (primary) hypertension; E83.119 Hemochromatosis, unspecified; J44.9 Chronic obstructive pulmonary disease, unspecified; I25.2 Old myocardial infarction; K50.90 Crohn's disease, unspecified, without complications

== ENCOUNTER 2021-02-19 09:45 | Observation (INO) | payer MEDICARE ==
[~2021-02-19] VITALS: Ht 177.8 cm; Wt 101.3 kg
--- NOTE | 2021-02-19 10:20 | NUR ---
PT TO ROOM W/STEADY GAIT.
--- NOTE | 2021-02-19 11:00 | NUR ---
18FR MERCEDES PLACED USING STERILE TECHNIQUE. IMMEADIATE RETURN OF DARK TONI URINE.
--- NOTE | 2021-02-19 11:24 | NUR ---
PATIENT STATES THAT HE HAS MUCH RELIEF WITH MERCEDES BEING CHANGE.
[2021-02-19 11:40] LABS: URINE BILIRUBIN - DIPSTICK NEGATIVE (NEGATIVE); URINE BLOOD DIPSTICK LARGE (NEGATIVE); URINE GLUCOSE - DIPSTICK NEGATIVE (NEGATIVE); URINE KETONE NEGATIVE (NEGATIVE); URINE LEUK ESTERASE NEGATIVE (NEGATIVE); URINE PH 5.5 (4.5-8.0); URINE PROTEIN - DIPSTICK TRACE mg/dL (NEG-TRACE); URINE UROBILINOGEN - DIPSTICK 0.2 E.U./dL (0.2)
[2021-02-19 11:42] LABS: URINE COLOR YELLOW; URINE NITRITE - DIPSTICK NEGATIVE (Negative)
[2021-02-19 11:48] LABS: URINE BACTERIA FEW hpf; URINE RBC 25-50 RBC/hpf (0-5)
[2021-02-19 12:07] LABS: ALBUMIN 3.8 g/dL (3.2-5.0); ALKALINE PHOSPHATASE 91 u/l (38-126); ANION GAP 16 (6-22 (CALC)); BILIRUBIN, TOTAL 0.7 mg/dL (0.0-1.4); BUN 31 mg/dL (8-23); BUN/CREATININE RATIO 23 (12-20 (CALC)); CARBON DIOXIDE 19 mmol/l (22-30); CHLORIDE 107 mmol/l (95-108); CREATININE 1.3 mg/dL (0.7-1.3); GFR 55 ML/MIN (>=60 (CALC)); GFR FOR AFR.AMER. > 60 ML/MIN (>=60 (CALC)); POTASSIUM 5.1 mmol/l (3.5-5.1); SGOT/AST 37 u/l (19-48); SODIUM 137 mmol/l (137-146)
--- NOTE | 2021-02-19 12:30 | NUR ---
PT UPDATED ON POC . DENIES PAIN. PLEASANT AND COOPERATIVE WITH CARE
[2021-02-19 12:54] LABS: HEMATOCRIT 39.1 % (39.0-50.0); IMMATURE GRANULOCYTES 0.8 % (0.0-5.0); MEAN CELL VOLUME 93.1 fL CALC (80.0-100.0); MEAN CORPUSCULAR HGB CONC 33.2 g/dL CAL (32.0-36.0); NEUT# 19.4 thou/uL (1.82-7.42); RED BLOOD COUNT 4.2 mill/uL (4.70-6.10); RED CELL DISTRI WIDTH 13.7 % (11.5-15.5)
--- NOTE | 2021-02-19 14:00 | NUR ---
NOTED SLIGHT INFILTRATION TO RT AC IV, IV DCED ADN COMPRESS APPLIED. EDP AWARE.WILL ATTEMPT ANOTHER IV.PT TOELRATED WELL
--- NOTE | 2021-02-19 15:00 | NUR ---
PATIENT RESTING COMFORTABLY ON STRETCHER NO COMPLAINTS VOICED AT THIS TIME
--- NOTE | 2021-02-19 15:44 | NUR ---
PATIENT RETURNED FROM RADIOLOGY, RECONNECTED TO ALL MONITORS AND IV FLUIDS/MEDICATIONS. PATIENT DENIES ANY FURTHER NEEDS AT THIS TIME.
--- NOTE | 2021-02-19 16:30 | NUR ---
GIVEN MEAL TRAY, PT STATES APPRECIATION. IV FLUIDS INFUSING.PT IN NO DISTRESS. F/C DRAINING DARK TEA COLORED URINE TO BSD
--- NOTE | 2021-02-19 17:30 | NUR ---
PATIENT RESTING COMFORTABLY ON STRETCHER. NO COMPLAINTS VOICED AT THIS ITME.
--- NOTE | 2021-02-19 18:30 | NUR ---
PATIENT RESTING ON STRETCHER AWIAITNG ADMISSION
--- NOTE | 2021-02-19 19:00 | NUR ---
REPORT TO YESI GOLDSMITH
--- NOTE | 2021-02-19 19:51 | NUR ---
PT OUTPUT FROM [facility] WAS 1600 AMBULATED TO BR TO PROVIDE OWN COLOSTOMY CARE WITHOUT INCIDENT.
--- NOTE | 2021-02-19 20:13 | NUR ---
REPORT CALLED TO CAROLYNE GRUBER ON [facility] ADVISED OF ALL MEDS, ATTACHMENTS AND EVENTS.
--- NOTE | 2021-02-19 20:50 | NUR ---
PT TO OwlTing ??? VIA [facility] CATH PATENT TO [facility]. TELE IN PLACE. IV SITE HEALTHY. NO APPARENT DISTRESS.
[2021-02-19 20:58] VITALS: BP 107/62; BP 94/67
--- NOTE | 2021-02-19 22:00 | NUR ---
PATIENT ADMITTED TO ROOM 266 FROM ER VIA WHEELCHAIR WITH ER STAFF IN ATTENDANCE. PATIENT IS ABLE TO TRANSFER TO THE BED. PATIENT ADMITTED FOR UTI, SEPSIS, COVID POSITIVE. STATES THAT HE WAS DX 02/05. NO COIVID SX AT THIS TIME.PLACED ON ISOLATION IN NEG PRESSURE ROOM. PATIENT IS ALERT AND ORIENTEDX3. PATIENT STATES THAT HE CAME TO THE ER BECAUSE OF HIS LEAKING CATH. PATIENT CURRENTLY WITH MERCEDES CATH DRAINING YELLOW URINE-WAS CHANGED IN THE ER. FEELING BETTER SINCE IT WAS CHANGED. PATIENT WITH RIGHT ABD ILEOSTOMY DRAINING GREEN STOOL. PATIENT ALSO SUFFERS WITH CHRONIC PAIN-CALL PLACED TO YEIMI HERNANDEZ APRN AND NEW ORDERS RECEIVED. WILL MEDICATE SOON PROFILED ON EMAR. IV SITE TO RIGHT FOREARM-IVF NS HUNG AND INFUSING ORDERED AT 75CC/HR. TELE MONITOR IN PLACE. PATIENT PROVIDED WITH HEALTHY CHOICE TURKEY DINNER-[employer]. ORIENTED PATIENT TO ROOM AND SURROUNDINGS. INSTRUCTED ON USE OF NURSE CALL LIGHT SYSTEM AND TV REMOTE. SAFETY PRECAUTIONS REINFORCED. CALL LIGHT IN REACH. WILL CONT TO MONITOR.
[2021-02-20] VITALS: BP 98/58
--- NOTE | 2021-02-20 03:29 | NUR ---
PATIENT CALLED AND MIN ASSIST TO BR TO EMPTY HIS ILEOSTOMY APPLIANCE-MODERATE AMT OF LOOSE GREEN STOOL. STEADY ON HIS FEET AND THEN BACK TO BED. MERCEDES CONT TO DRAIN CLOUDY YELLOW URINE. TELE MONITOR IN PLACE. IVF PATENT AND INFUSING VIA RIGHT FOREARM SITE AT 75CC/HR. SITE REMAINS HEALTHY AT THIS TIME. SAFETY PRECAUTIONS REINFORCED. CALL LIGHT IN REACH. WILL CONT TO MONITOR.
[2021-02-20 04:00] VITALS: BP 99/54
[2021-02-20 05:38] LABS: HEMATOCRIT 35.9 % (39.0-50.0); HEMOGLOBIN 11.8 g/dl (14.0-18.0); MEAN CELL VOLUME 95.5 fL CALC (80.0-100.0); MEAN CORPUSCULAR HGB 31.4 pG CALC (26.0-32.0); MEAN CORPUSCULAR HGB CONC 32.9 g/dL CAL (32.0-36.0); RED BLOOD COUNT 3.76 mill/uL (4.70-6.10); RED CELL DISTRI WIDTH 14.1 % (11.5-15.5)
[2021-02-20 06:13] LABS: BUN 21 mg/dL (8-23); BUN/CREATININE RATIO 20 (12-20 (CALC)); CHLORIDE 110 mmol/l (95-108); GFR > 60 ML/MIN (>=60 (CALC)); GFR FOR AFR.AMER. > 60 ML/MIN (>=60 (CALC)); MAGNESIUM 1.6 mg/dL (1.6-2.3); SODIUM 141 mmol/l (137-146)
[2021-02-20 06:15] LABS: ANION GAP 13 (6-22 (CALC)); CARBON DIOXIDE 23 mmol/l (22-30)
[2021-02-20 07:30] VITALS: BP 110/80
--- NOTE | 2021-02-20 07:30 | NUR ---
PATIENT LAYING IN BED AT THIS TIME. PATIENT STATES WHEN ASKED ABOUT PAIN "I ALWAYS HAVE PAIN ALL OVER" PATIENT STATES HIS PAIN IS A 5 AT THIS TIME. [facility] PHYSICIAN DONE AT THIS TIME SEE INTERVENTION LUNG SOUNDS ARE CLEAR AND SPO2 IS 95% ON ROOM AIR. PATIENT PRESENTS WITH ILEOSTOMY ON RIGHT ABDOMINAL WALL WIHT SOFT BROWN STOOL NOTED AND PATIENT PRESENTS WITH A MERCEDES AT THIS TIME WIHT CLEAR YELLOW URINE. PATIENT STATED "MAKE SURE I GET MY PAIN MEDICATION". SIDERAILS ARE UP CALL LIGHT IS WIHTHIN REACH.
[2021-02-20 09:14] VITALS: BP 110/80
[2021-02-20] MEDS ORDERED: DICYCLOMINE HCL10 MG PO (10:09)
--- NOTE | 2021-02-20 10:46 | NUR ---
PATIENT D/C AT THIS TIME PATIENT VERBALIZES UNDERSTANDING OF ALL D/C INSTRUCTION. ED CALLED AND NOTIFIED PATIENT COMING OFF TELE (PERLA RN NOTIFIED).
--- NOTE | 2021-02-20 11:14 | NUR ---
Discharge instructions given. Patient verbalizes understanding of same. Discharged in stable condition via Wheelchair to Home with family. All belongings sent with pt. PATIENT HAS OWN HOME CARE ESTABLISHED
== END 2021-02-20 11:14 | disposition home health service (06) ==
LOC: ED 09:45 → ED-I 18:15 → ED 19:10 → MS2 19:11
PROVIDERS: Family Medicine; Nurse Practitioner; ADMIT Internal Medicine; ATTEND Internal Medicine
PROC: 0T2BX0Z Change Drainage Device in Bladder, External Approach (ICD-10-PCS; principal; 2021-02-19)
DX: N39.0 Urinary tract infection, site not specified (principal); U07.1 COVID-19; I10 Essential (primary) hypertension; E11.9 Type 2 diabetes mellitus without complications; I48.0 Paroxysmal atrial fibrillation; D64.9 Anemia, unspecified; K50.90 Crohn's disease, unspecified, without complications; J44.9 Chronic obstructive pulmonary disease, unspecified; I25.2 Old myocardial infarction; G89.4 Chronic pain syndrome; B96.89 Other specified bacterial agents as the cause of diseases classified elsewhere; Z96.0 Presence of urogenital implants; Z90.49 Acquired absence of other specified parts of digestive tract; Z86.711 Personal history of pulmonary embolism; Z86.718 Personal history of other venous thrombosis and embolism; Z93.3 Colostomy status
CPT/HCPCS: Q9967

== ENCOUNTER 2021-05-10 09:14 | Observation (INO) | payer MEDICARE ==
[~2021-05-10] VITALS: Ht 177.8 cm; Wt 105.0 kg
[2021-05-10] VITALS (8 sets, daily range): BP systolic 82–114; BP diastolic 55–64
[~2021-05-10 09:14] MED LIST changes: +ADLT ASA LOW81 MG PO; +ATENOLOL25 MG PO; +B COMPLE2 PO; +BOOST PO; +CLOPIDOGREL75 MG PO; +COMPAZINE10 MG PO; +DICYCLOMINE HCL10 MG PO; +FERRAPLUS 90 PO; +GINSENG100 MG PO; +HYDROXYZ HCL25 MG PO; +MULTI VIT PO; +ONDANSETRON4 MG PO; +OXYCODONE5 M1 PO; +PROTONIX20 M1 PO; +TEMAZEPAM30 MG PO; +TYLENOL325 M2 PO; +VITAMIN D31000 UNI1 PO
--- NOTE | 2021-05-10 14:43 | NUR ---
PT ARRIVED VIA STRETCHER ACCOMPANIED BY OR NURSES. PT A&O X3, SLIGHLTY DROWSY POST PROCEDURE. 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 COLOSTOMY BAG SECURED IN PLACE CHANGED BY OR DURING PROCEDURE. SLIGHTL AMOUNT OF BROWN OUTPUT NOTED. HYPOACTIVE BOWEL SOUNDS X4 QUADRANTS. MERCEDES CATHTER IN PLACE PLACED BY OR DURING PROCEDURE; CATHETER TO BE REMOVED TOMORROW IN THE AM. BILATERAL SCDS APPLIED. #20G RW REDRESSED; IVF INITIATED PER EMAR. PRIVATE [employer]CH EXCHANGE SERVICE ADVISOR PLACED DUE TO MEDICATIONS PT WILL BE REC. HOME MEDICATIONS COLLECTED; TO BE COUNTED AND SENT TO PHARMACY. ORIENTED PT TO ROOM. ASSESSMENT COMPLETED. DISCUSSED POC. CALL LIGHT WITHIN REACH.
--- NOTE | 2021-05-10 18:11 | NUR ---
PT MEDICATED WITH PRN DILAUDID PER EMAR ORDER/PAIN SCALE. NO OTHER NEEDS AT THIS TIME. CALL LIGHT WITHIN REACH.
--- NOTE | 2021-05-10 19:30 | NUR ---
PATIENT SITTING UP IN BED-AWAKE ALERT AND ORIENTEDX3. PATIENT ASKING FOR PAIN MEDS-WAS JUST MEDICATED AROUND 1800-EDUCATED PATIENT REGUARDING THE USE OF PAIN MEDS AND THE FREQUENCY OF THE DOSE-PRN NOT SCHEDULED. IV SITE TO LEFT WRIST INTACT WITH IVF D51/2NS PATENT AND INFUSING AT 125CC/HR. SITE REMAINS HEALTHY AT THIS TIME. TELE MONITOR IN PLACE. PATIENT IS TAKING PO FLUIDS. COLOSTOMY APPLIANCE INTACT TO RIGHT ABD WITH SMALL AMT OF BROWNISH GREEN FLUID NOTED. 5 SMALL INCISIONS NOTED TO ABD INTACT WITH DERMABOND. NO DRAINAGE NOTED. MERCEDES CATH PATENT AND DRAINING YELLOW URINE. SCD'S IN PLACE. ENCOURAGED USE OF IS Q1H WHILE AWAKE IN REPS OF 10. PATIENT ASKING IF HE CAN TAKE HIS PAIN MEDS AND MUSCLE RELAXANTS FROM HOME-EDUCATED THAT THEY WERE SENT TO THE PHARM AND THE MD SPECIFICALLY ORDERED THAT HE NOT TAKE HOME MEDS. PATIENT WITH PAIN MED-DILAUDID AND MUSCLE RELAXANT FLEXERIL ORDERED FOR USE HERE IN THE HOSPITAL. VERBALIZES UNDERSTANDING AT THIS TIME. SAFETY PRECAUTIONS REINFORCED. CALL LIGHT IN REACH. WILL CONT TO MONITOR.
--- NOTE | 2021-05-10 23:20 | NUR ---
PATIENT RESTING IN BED-CALL AND C/O ABD PAIN-7/10 ON PAIN SCALE. MEDICATED WITH DILAUDID 1MG IVP FOR PAIN. ENCOURAGED PAIN ON USE OF IS Q1H WHILE AWAKE. SAFETY PRECAUTIONS REINFORCED. CALL LIGHT IN REACH. WILL CONT TO MONITOR.
[2021-05-11] VITALS: BP 92/61
--- NOTE | 2021-05-11 02:21 | NUR ---
PATIENT RESTING IN BED-C/O ABD PAIN AND HEADACHE-7/10 ON PAIN SCALE. MEDICATED WITH DILAUDID 1MG IVP FOR PAIN AND TYLENOL 650MG PO FOR HEADACHE. COLOCTOMY APPLIANCE EMPTIED FOR APPROX 200CC OF LIQUID BROWN STOOL. TELE MONITOR REMAINS IN PLACE. IVF PATENT AND INFUSING VIA LEFT WRIST SITE ORDERED AT 125CC/HR. SITE REMAINS HEALTHY. CALL LIGHT IN REACH. WILL CONT TO MONITOR.
[2021-05-11 04:00] VITALS: BP 104/60
--- NOTE | 2021-05-11 06:21 | NUR ---
PATIENT RESTING IN BED AT THIS TIME-C/O ABD PAIN-10/14. MEDICATED WITH DILAUDID 1MG IVP FOR 10/14 ABD PAIN. IVF PATENT AND INFUSING VIA LEFT WRIST SITE AT 125CC/HR. MEDICATED WITH FLEXERIL FOR MUSCLE SPASM PER PATIENT REQUEST. TELE MONITOR IN PLACE-LAST READING SR-86 WITH 1ST DEGREE AVB. MERCEDES PATENT AND DRAINING YELLOW URINE. MCOLOSTOMY APPLIANCE INTACT WITH SMALL AMT OF BROWN LOOSE STOOL. SAFETY PRECAUTIONS REINFORCED. CALL LIGHT IN REACH,WILL CONT TO MONITOR.
[2021-05-11 08:00] VITALS: BP 102/63
--- NOTE | 2021-05-11 08:00 | NUR ---
ASSESSMENT AND VITALS ALLOWED AT THIS TIME. PT IS A&OX3, LUNG SOUNDS ARE CLEAR UPPER/LOWER LOBES ANTERIOR AND POSTERIOR. HEART SOUNDS ARE REGULAR, TELE MONITOR IN PLACE, CONTINOUS MONITORING BY ED. BOWEL SOUNDS ACTIVE X4. RIGHT QUADRANT OSTOMY IN PLACE SHOWING DARK BROWN STOOL. PT VOICED PAIN. PAIN MED GIVEN PER EMAR. IV ON LW 20G INFUSING IVF PER EMAR. FALL/SAFTEY PRECAUTIONS IN PLACE. CALL LIGHT WITHIN REACH.
--- NOTE | 2021-05-11 13:31 | NUR ---
PT ASSISTED UP TO THE CHAIR WITH THE ASSISTANCE OF Sarai OTT CNA. PT AT SIDE OF RECLINER EMPTYING COLOSTOMY BAG. NO OTHER NEEDS AT THIS TIME. CALL LIGHT WITHIN REACH.
--- NOTE | 2021-05-11 15:51 | NUR ---
PT RESTING WATCHING TV AT THIS TIME. STATES PAIN IS MUCH BETTER. STATES NO OTHER NEEDS AT THIS TIME. CALL LIGHT IS WITHIN REACH. TELE MONITOR IS IN PLACE. FALL/SAFETY PRECAUTIONS ARE IN PLACE.
[2021-05-11 16:00] VITALS: BP 142/62
[2021-05-11 18:56] VITALS: BP 106/63
--- NOTE | 2021-05-11 20:30 | NUR ---
PATIENT RESTING IN BED AT TH IS TIME-AWAKE ALERT AND ORIENTEDX3. PATIENT C/O OF ABD PAIN-7/10 ON PAIN SCALE. MEDICATED WITH DILAUDID 1MG IVP. IV SITE TO LEFT WRIST REMAINS HEALTHY WITH IVF D51/2NS PATENT AND INFUSING AT 75CC/HR. COLOSTOMY APPLIANCE INTACT WITH SMALL AMT OF WATERY BROWN STOOL IN BAG. ABD IS SOFT WITH ACTIVE BS. SMALL ABD INCISIONS INTACT WITH DERMABOND. VOIDING YELLOW URINE IN URINAL. LUNGS ARE CLEAR-ENCOURAGED USE OF THE IS Q1H WHILE AWAKE. SCD'S IN PLACE. NO PERIPHERAL EDEMA NOTED. PULSES ARE PALPABLE. SAFETY PRECAUTIONS REINFORCED. CALL LIGHT IN REACH. WILL CONT TO MONITOR.
[2021-05-12] VITALS: BP 119/71
--- NOTE | 2021-05-12 00:37 | NUR ---
PATIENT RESTING IN BED AT THIS TIME-AWAKE ALERT AND C/O ABD PAIN-7/10 ON PAIN SCALE. MEDICATED WITH DILAUDID 1MG IVP FOR PAIN. PATIENT ASSISTED WITH COLOSTOMY CARE-EMPTIED FOR MODERATE OF SOFT BROWN STOOL. IVF PATENT AND INFUSING AT 75CC/HR VIA LEFT WRIST. VOIDING YELLOW URINE IN URINAL. CALL LIGHT IN REACH. WILL CONT TO MONITOR.
--- NOTE | 2021-05-12 03:37 | NUR ---
PATIENT RESTING IN BED AT THIS TIME-EYES ARE CLOSED AND RESPS ARE EVEN AND UNLABORED. IVF PATENT AND INFUSING VIA LEFT WRIST ORDERED. TELE MONITOR IN PLACE. OSTOMY APPLICANCE TO RIGHT ABD. CALL LIGHT IN REACH. WILL CONT TO MONITOR.
[2021-05-12 04:00] VITALS: BP 114/64
--- NOTE | 2021-05-12 04:02 | NUR ---
PATIENT AWAKE C/O ABD AND BACK PAIN-7/10 ON PAIN SCALE. MEDICATED WITH DILAUDID 1MG IVP FOR PAIN AND WITH FLEXERIL 10MG PO FOR MUSCLE SPASMS. IVF PATENT AND INFUSING ORDERED VIA LEFT WRIST SITE. TELE MONITOR IN PLACE. CALL LIGHT IN REACH. WILL CONT TO MONITOR.
[2021-05-12 05:50] LABS: MEAN CELL VOLUME 100.3 fL CALC (80.0-100.0); MEAN CORPUSCULAR HGB 33.6 pG CALC (26.0-32.0); MEAN CORPUSCULAR HGB CONC 33.5 g/dL CAL (32.0-36.0); RED BLOOD COUNT 3.57 mill/uL (4.70-6.10); RED CELL DISTRI WIDTH 12.8 % (11.5-15.5)
[2021-05-12 05:57] LABS: HEMATOCRIT 35.8 % (39.0-50.0)
[2021-05-12 06:00] LABS: ANION GAP 10 (6-22 (CALC)); BUN 12 mg/dL (8-23); BUN/CREATININE RATIO 14 (12-20 (CALC)); CARBON DIOXIDE 25 mmol/l (22-30); CHLORIDE 106 mmol/l (95-108); CREATININE 0.8 mg/dL (0.7-1.3); GFR > 60 ML/MIN (>=60 (CALC)); GFR FOR AFR.AMER. > 60 ML/MIN (>=60 (CALC)); MAGNESIUM 1.7 mg/dL (1.6-2.3); SODIUM 137 mmol/l (137-146)
[2021-05-12 06:27] LABS: POTASSIUM 3.9 mmol/l (3.5-5.1)
[2021-05-12 08:00] VITALS: BP 139/73
--- NOTE | 2021-05-12 08:00 | NUR ---
ASSESSMENT AND VITALS ALLOWED AT THID TIME. LUNG SOUNDS CLEAR UPPER/LOWER LOBES ANTERIOR AND POSTERIOR. HEART SOUNDS ARE REGULAR, TELE MONITOR IS IN PLACE, CONTINOUS MONITORING BY ED. BOWEL SOUNDS ARE ACTIVE. HAS NOT HAD BM BUT STATES PASSING FLATUS. IV ON LAC 20G FLUSHED WITH NO RESSISTANCE. IVF INFUSING PER EMAR. FALL/SAFTEY PRECAUTIONS IN PLACE. CALL LIGHT WITHIN REACH
[2021-05-12 08:54] VITALS: BP 139/73
--- NOTE | 2021-05-12 12:00 | NUR ---
PT EATING LUNCH AT THIS TIME. NO DISTRESS NOTED. TELE MONITOR IN PLACE. IVF INFUSING PER EMAR. FALL/SAFETY PRECAUTION WITHIN REACH. CALL LIGHT WITHIN REACH.
--- NOTE | 2021-05-12 14:20 | NUR ---
Discharge instructions given. Patient verbalizes understanding of same. Discharged in stable condition via Wheelchair to Home with staff. All belongings sent with pt. 20G LEFT WRIST REMOVED. CATHETER INTACT
== END 2021-05-12 14:30 | disposition home or self-care (01) ==
LOC: ORM 09:14 → MS2 14:43
PROVIDERS: Hospitalist; ADMIT Surgery; ATTEND Surgery
PROC: 0WUF4JZ Supplement Abdominal Wall with Synthetic Substitute, Percutaneous Endoscopic Approach (ICD-10-PCS; principal; 2021-05-10)
PROC: 3E02340 Introduction of Influenza Vaccine into Muscle, Percutaneous Approach (ICD-10-PCS; 2021-05-12)
DX: K43.5 Parastomal hernia without obstruction or gangrene (principal); I10 Essential (primary) hypertension; E11.9 Type 2 diabetes mellitus without complications; I48.0 Paroxysmal atrial fibrillation; J44.9 Chronic obstructive pulmonary disease, unspecified; I25.10 Atherosclerotic heart disease of native coronary artery without angina pectoris; M19.90 Unspecified osteoarthritis, unspecified site; I25.2 Old myocardial infarction; Z23 Encounter for immunization; Z90.49 Acquired absence of other specified parts of digestive tract; Z93.2 Ileostomy status; Z86.718 Personal history of other venous thrombosis and embolism; Z86.711 Personal history of pulmonary embolism; F41.9 Anxiety disorder, unspecified; Z79.891 Long term (current) use of opiate analgesic
CPT/HCPCS: J0131; J1650

== ENCOUNTER 2021-07-25 08:30 | Emergency (ER) | payer MEDICARE ==
[2021-07-25] VITALS (8 sets, daily range): BP systolic 112–129; BP diastolic 65–78
[~2021-07-25] VITALS: Ht 177.8 cm; Wt 109.0 kg
[2021-07-25 09:35] LABS: HEMATOCRIT 38.6 % (39.0-50.0); HEMOGLOBIN 12.9 g/dl (14.0-18.0); IMMATURE GRANULOCYTES 0.2 % (0.0-5.0); MEAN CELL VOLUME 100.5 fL CALC (80.0-100.0); MEAN CORPUSCULAR HGB 33.6 pG CALC (26.0-32.0); MEAN CORPUSCULAR HGB CONC 33.4 g/dL CAL (32.0-36.0); NEUT# 5.6 thou/uL (1.82-7.42); RED BLOOD COUNT 3.84 mill/uL (4.70-6.10); RED CELL DISTRI WIDTH 12.4 % (11.5-15.5)
[2021-07-25 09:54] LABS: ALBUMIN 3.8 g/dL (3.2-5.0); ALKALINE PHOSPHATASE 73 u/l (38-126); AMYLASE 89 u/l (30-110); ANION GAP 12 (6-22 (CALC)); BILIRUBIN, TOTAL 0.3 mg/dL (0.0-1.4); BUN 35 mg/dL (8-23); BUN/CREATININE RATIO 31 (12-20 (CALC)); CARBON DIOXIDE 24 mmol/l (22-30); CHLORIDE 109 mmol/l (95-108); CREATININE 1.1 mg/dL (0.7-1.3); GFR > 60 ML/MIN (>=60 (CALC)); GFR FOR AFR.AMER. > 60 ML/MIN (>=60 (CALC)); LIPASE 69 u/l (23-300); POTASSIUM 4.4 mmol/l (3.5-5.1); SGOT/AST 23 u/l (19-48); SODIUM 140 mmol/l (137-146); TOTAL PROTEIN 7.6 g/dL (6.3-8.2)
[2021-07-25 09:57] LABS: ACT PARTIAL THROMBO TIME 24.7 SECONDS (20.0-32.5)
[2021-07-25 11:20] LABS: URINE BILIRUBIN - DIPSTICK NEGATIVE (NEGATIVE); URINE BLOOD DIPSTICK NEGATIVE (NEGATIVE); URINE COLOR YELLOW; URINE GLUCOSE - DIPSTICK NEGATIVE (NEGATIVE); URINE KETONE NEGATIVE (NEGATIVE); URINE LEUK ESTERASE TRACE (NEGATIVE); URINE PH 5.5 (4.5-8.0); URINE PROTEIN - DIPSTICK NEGATIVE (NEG-TRACE); URINE SPECIFIC GRAVITY >=1.030; URINE UROBILINOGEN - DIPSTICK 0.2 E.U./dL (0.2)
[2021-07-25 11:21] LABS: URINE NITRITE - DIPSTICK NEGATIVE (Negative)
== END 2021-07-25 13:54 | disposition home or self-care (01) ==
LOC: ED 08:30
DX: K43.5 Parastomal hernia without obstruction or gangrene (principal); I10 Essential (primary) hypertension; Z93.3 Colostomy status; Z20.822 Contact with and (suspected) exposure to COVID-19
CPT/HCPCS: Q9967

== ENCOUNTER 2021-08-06 08:34 | Inpatient (IN) | payer MEDICARE ==
[~2021-08-06] VITALS: Ht 177.8 cm; Wt 111.0 kg
[2021-08-06] MEDS ORDERED: ATENOLOL25 MG PO (09:36)
[2021-08-07] VITALS (8 sets, daily range): BP systolic 115–128; BP diastolic 63–74
[2021-08-08] VITALS (8 sets, daily range): BP systolic 110–139; BP diastolic 57–83
[2021-08-09 00:23] VITALS: BP 122/66
[2021-08-09 04:27] VITALS: BP 149/87
[2021-08-09 06:01] LABS: HEMATOCRIT 41.2 % (39.0-50.0); HEMOGLOBIN 13.6 g/dl (14.0-18.0); IMMATURE GRANULOCYTES 0.3 % (0.0-5.0); MEAN CORPUSCULAR HGB 33.3 pG CALC (26.0-32.0); NEUT# 11.64 thou/uL (1.82-7.42); RED BLOOD COUNT 4.08 mill/uL (4.70-6.10); RED CELL DISTRI WIDTH 12.5 % (11.5-15.5)
[2021-08-09 06:07] LABS: ANION GAP 11 (6-22 (CALC)); BUN/CREATININE RATIO 19 (12-20 (CALC)); CARBON DIOXIDE 22 mmol/l (22-30); CHLORIDE 108 mmol/l (95-108); CREATININE 0.8 mg/dL (0.7-1.3); GFR > 60 ML/MIN (>=60 (CALC)); GFR FOR AFR.AMER. > 60 ML/MIN (>=60 (CALC)); POTASSIUM 4.3 mmol/l (3.5-5.1); SODIUM 138 mmol/l (137-146)
[2021-08-09 06:09] LABS: BUN 15 mg/dL (8-23)
[2021-08-09 07:38] VITALS: BP 122/89
[2021-08-09 10:31] VITALS: BP 111/68
[2021-08-09 14:19] VITALS: BP 149/77
[2021-08-09 19:08] VITALS: BP 139/76
[2021-08-10 00:08] VITALS: BP 122/68
[2021-08-10 04:22] VITALS: BP 120/69
[2021-08-10 08:00] VITALS: BP 156/90
[2021-08-10 08:01] LABS: HEMATOCRIT 42.8 % (39.0-50.0); HEMOGLOBIN 13.9 g/dl (14.0-18.0); MEAN CELL VOLUME 101.7 fL CALC (80.0-100.0); MEAN CORPUSCULAR HGB CONC 32.5 g/dL CAL (32.0-36.0); RED BLOOD COUNT 4.21 mill/uL (4.70-6.10); RED CELL DISTRI WIDTH 12.7 % (11.5-15.5)
[2021-08-10 08:19] LABS: ALKALINE PHOSPHATASE 46 u/l (38-126); ANION GAP 9 (6-22 (CALC)); BUN 14 mg/dL (8-23); BUN/CREATININE RATIO 20 (12-20 (CALC)); CARBON DIOXIDE 24 mmol/l (22-30); CHLORIDE 110 mmol/l (95-108); CREATININE 0.7 mg/dL (0.7-1.3); GFR > 60 ML/MIN (>=60 (CALC)); GFR FOR AFR.AMER. > 60 ML/MIN (>=60 (CALC)); POTASSIUM 4.4 mmol/l (3.5-5.1); SGOT/AST 24 u/l (19-48); SODIUM 139 mmol/l (137-146)
[2021-08-10 08:20] LABS: ALBUMIN 2.6 g/dL (3.2-5.0); BILIRUBIN, TOTAL 0.5 mg/dL (0.0-1.4); TOTAL PROTEIN 5.6 g/dL (6.3-8.2)
[2021-08-10 10:20] VITALS: BP 131/74
[2021-08-10 14:15] VITALS: BP 141/78
[2021-08-10 19:19] VITALS: BP 133/77
[2021-08-11 00:32] VITALS: BP 117/74
[2021-08-11 04:27] VITALS: BP 124/75
[2021-08-11 04:57] LABS: HEMATOCRIT 38.4 % (39.0-50.0); HEMOGLOBIN 12.9 g/dl (14.0-18.0); IMMATURE GRANULOCYTES 0.3 % (0.0-5.0); MEAN CORPUSCULAR HGB 33.6 pG CALC (26.0-32.0); MEAN CORPUSCULAR HGB CONC 33.6 g/dL CAL (32.0-36.0); NEUT# 9.35 thou/uL (1.82-7.42); RED BLOOD COUNT 3.84 mill/uL (4.70-6.10); RED CELL DISTRI WIDTH 12.8 % (11.5-15.5)
[2021-08-11 05:08] LABS: ALBUMIN 2.7 g/dL (3.2-5.0); ALKALINE PHOSPHATASE 45 u/l (38-126); ANION GAP 9 (6-22 (CALC)); BILIRUBIN, TOTAL 0.5 mg/dL (0.0-1.4); BUN 14 mg/dL (8-23); BUN/CREATININE RATIO 19 (12-20 (CALC)); CARBON DIOXIDE 27 mmol/l (22-30); CHLORIDE 106 mmol/l (95-108); CREATININE 0.8 mg/dL (0.7-1.3); GFR > 60 ML/MIN (>=60 (CALC)); GFR FOR AFR.AMER. > 60 ML/MIN (>=60 (CALC)); MAGNESIUM 1.8 mg/dL (1.6-2.3); POTASSIUM 3.8 mmol/l (3.5-5.1); SGOT/AST 24 u/l (19-48); SODIUM 139 mmol/l (137-146); TOTAL PROTEIN 5.6 g/dL (6.3-8.2)
[2021-08-11] MEDS ORDERED: PROTONIX40 M2 PO (07:33)
[2021-08-11 08:00] VITALS: BP 126/75
[2021-08-11 10:40] VITALS: BP 116/61; BP 136/70
[2021-08-11 14:28] VITALS: BP 136/69
[2021-08-11 19:10] VITALS: BP 131/65
[2021-08-12] VITALS: BP 142/70
[2021-08-12 04:47] VITALS: BP 151/74
[2021-08-12 05:19] LABS: HEMATOCRIT 37.5 % (39.0-50.0); HEMOGLOBIN 12.5 g/dl (14.0-18.0); IMMATURE GRANULOCYTES 0.3 % (0.0-5.0); MEAN CELL VOLUME 100.8 fL CALC (80.0-100.0); MEAN CORPUSCULAR HGB 33.6 pG CALC (26.0-32.0); MEAN CORPUSCULAR HGB CONC 33.3 g/dL CAL (32.0-36.0); NEUT# 8.18 thou/uL (1.82-7.42); RED BLOOD COUNT 3.72 mill/uL (4.70-6.10); RED CELL DISTRI WIDTH 12.7 % (11.5-15.5)
[2021-08-12 05:40] LABS: ANION GAP 8 (6-22 (CALC)); BUN 16 mg/dL (8-23); BUN/CREATININE RATIO 20 (12-20 (CALC)); CARBON DIOXIDE 31 mmol/l (22-30); CHLORIDE 104 mmol/l (95-108); CREATININE 0.8 mg/dL (0.7-1.3); GFR > 60 ML/MIN (>=60 (CALC)); GFR FOR AFR.AMER. > 60 ML/MIN (>=60 (CALC)); MAGNESIUM 1.9 mg/dL (1.6-2.3); POTASSIUM 3.5 mmol/l (3.5-5.1); SODIUM 139 mmol/l (137-146)
[2021-08-12 06:00] VITALS: BP 137/84
[2021-08-12 08:28] VITALS: BP 138/76
[2021-08-12 14:16] VITALS: BP 122/76
[2021-08-12 19:10] VITALS: BP 144/61
[2021-08-13] VITALS (10 sets, daily range): BP systolic 123–148; BP diastolic 56–75
[2021-08-13 05:20] LABS: HEMATOCRIT 36.9 % (39.0-50.0); HEMOGLOBIN 12.2 g/dl (14.0-18.0); IMMATURE GRANULOCYTES 0.5 % (0.0-5.0); MEAN CELL VOLUME 100.8 fL CALC (80.0-100.0); MEAN CORPUSCULAR HGB 33.3 pG CALC (26.0-32.0); MEAN CORPUSCULAR HGB CONC 33.1 g/dL CAL (32.0-36.0); NEUT# 10.01 thou/uL (1.82-7.42); RED BLOOD COUNT 3.66 mill/uL (4.70-6.10); RED CELL DISTRI WIDTH 12.9 % (11.5-15.5)
[2021-08-13 05:49] LABS: ANION GAP 11 (6-22 (CALC)); BUN 15 mg/dL (8-23); BUN/CREATININE RATIO 20 (12-20 (CALC)); CARBON DIOXIDE 31 mmol/l (22-30); CHLORIDE 103 mmol/l (95-108); CREATININE 0.8 mg/dL (0.7-1.3); GFR > 60 ML/MIN (>=60 (CALC)); GFR FOR AFR.AMER. > 60 ML/MIN (>=60 (CALC)); MAGNESIUM 1.9 mg/dL (1.6-2.3); POTASSIUM 3.5 mmol/l (3.5-5.1); SODIUM 141 mmol/l (137-146)
[2021-08-14 03:39] VITALS: BP 138/67
[2021-08-14 06:10] LABS: HEMATOCRIT 36.8 % (39.0-50.0); HEMOGLOBIN 12.1 g/dl (14.0-18.0); MEAN CELL VOLUME 101.7 fL CALC (80.0-100.0); MEAN CORPUSCULAR HGB 33.4 pG CALC (26.0-32.0); MEAN CORPUSCULAR HGB CONC 32.9 g/dL CAL (32.0-36.0); RED BLOOD COUNT 3.62 mill/uL (4.70-6.10); RED CELL DISTRI WIDTH 13.1 % (11.5-15.5)
[2021-08-14 06:31] LABS: ANION GAP 11 (6-22 (CALC)); BUN 13 mg/dL (8-23); BUN/CREATININE RATIO 15 (12-20 (CALC)); CARBON DIOXIDE 29 mmol/l (22-30); CHLORIDE 103 mmol/l (95-108); CREATININE 0.9 mg/dL (0.7-1.3); GFR > 60 ML/MIN (>=60 (CALC)); GFR FOR AFR.AMER. > 60 ML/MIN (>=60 (CALC)); MAGNESIUM 1.6 mg/dL (1.6-2.3); POTASSIUM 3.6 mmol/l (3.5-5.1); SODIUM 139 mmol/l (137-146)
[2021-08-14 06:32] LABS: URINE BLOOD DIPSTICK TRACE-INTACT (NEGATIVE); URINE COLOR YELLOW; URINE GLUCOSE - DIPSTICK NEGATIVE (NEGATIVE); URINE KETONE TRACE mg/dL (NEGATIVE); URINE PROTEIN - DIPSTICK TRACE mg/dL (NEG-TRACE); URINE UROBILINOGEN - DIPSTICK 0.2 E.U./dL (0.2)
[2021-08-14 06:34] LABS: URINE BILIRUBIN - DIPSTICK SMALL (NEGATIVE); URINE LEUK ESTERASE SMALL (NEGATIVE); URINE NITRITE - DIPSTICK NEGATIVE (Negative)
[2021-08-14 06:40] LABS: URINE MUCUS FEW hpf (NONE-FEW); URINE SQUAMOUS EPITHELIAL CELL FEW EPI/hpf (0-FEW); URINE WBC 20-50 WBC/hpf (0-5)
[2021-08-14 06:41] LABS: URINE BACTERIA FEW hpf
[2021-08-14 07:15] VITALS: BP 106/58
[2021-08-14 09:23] VITALS: BP 114/53
[2021-08-14 10:30] VITALS: BP 119/59
[2021-08-14 14:45] VITALS: BP 105/55
[2021-08-14 19:06] VITALS: BP 134/68
[2021-08-15] VITALS (7 sets, daily range): BP systolic 96–123; BP diastolic 53–67
[2021-08-15 06:01] LABS: ANION GAP 9 (6-22 (CALC)); BUN 14 mg/dL (8-23); BUN/CREATININE RATIO 16 (12-20 (CALC)); CARBON DIOXIDE 27 mmol/l (22-30); CHLORIDE 104 mmol/l (95-108); CREATININE 0.9 mg/dL (0.7-1.3); GFR > 60 ML/MIN (>=60 (CALC)); GFR FOR AFR.AMER. > 60 ML/MIN (>=60 (CALC)); MAGNESIUM 1.5 mg/dL (1.6-2.3); POTASSIUM 3.5 mmol/l (3.5-5.1); SODIUM 137 mmol/l (137-146)
[2021-08-15 06:04] LABS: HEMATOCRIT 35.9 % (39.0-50.0); HEMOGLOBIN 11.6 g/dl (14.0-18.0); MEAN CELL VOLUME 103.5 fL CALC (80.0-100.0); MEAN CORPUSCULAR HGB 33.4 pG CALC (26.0-32.0); MEAN CORPUSCULAR HGB CONC 32.3 g/dL CAL (32.0-36.0); RED BLOOD COUNT 3.47 mill/uL (4.70-6.10); RED CELL DISTRI WIDTH 13.2 % (11.5-15.5)
[2021-08-16 00:50] VITALS: BP 135/63
[2021-08-16 03:52] VITALS: BP 131/44
[2021-08-16 05:20] LABS: HEMATOCRIT 38.6 % (39.0-50.0); HEMOGLOBIN 12.6 g/dl (14.0-18.0); MEAN CELL VOLUME 101.6 fL CALC (80.0-100.0); MEAN CORPUSCULAR HGB 33.2 pG CALC (26.0-32.0); MEAN CORPUSCULAR HGB CONC 32.6 g/dL CAL (32.0-36.0); RED BLOOD COUNT 3.8 mill/uL (4.70-6.10); RED CELL DISTRI WIDTH 13.3 % (11.5-15.5)
[2021-08-16 05:41] LABS: ANION GAP 14 (6-22 (CALC)); BUN 12 mg/dL (8-23); BUN/CREATININE RATIO 15 (12-20 (CALC)); CARBON DIOXIDE 29 mmol/l (22-30); CHLORIDE 101 mmol/l (95-108); CREATININE 0.8 mg/dL (0.7-1.3); GFR > 60 ML/MIN (>=60 (CALC)); GFR FOR AFR.AMER. > 60 ML/MIN (>=60 (CALC)); SODIUM 141 mmol/l (137-146)
[2021-08-16 05:44] LABS: MAGNESIUM 2.2 mg/dL (1.6-2.3)
[2021-08-16 07:57] VITALS: BP 110/57
[2021-08-16 10:30] VITALS: BP 103/53
[2021-08-16 14:15] VITALS: BP 110/58
[2021-08-16 19:01] VITALS: BP 109/52
[2021-08-17 00:11] VITALS: BP 103/47
[2021-08-17 04:09] VITALS: BP 108/47
[2021-08-17 05:39] LABS: HEMATOCRIT 34.3 % (39.0-50.0); HEMOGLOBIN 11.6 g/dl (14.0-18.0); MEAN CORPUSCULAR HGB 33.1 pG CALC (26.0-32.0); MEAN CORPUSCULAR HGB CONC 33.8 g/dL CAL (32.0-36.0); RED BLOOD COUNT 3.5 mill/uL (4.70-6.10)
[2021-08-17 05:59] LABS: ANION GAP 10 (6-22 (CALC)); BUN 9 mg/dL (8-23); BUN/CREATININE RATIO 12 (12-20 (CALC)); CARBON DIOXIDE 28 mmol/l (22-30); CHLORIDE 104 mmol/l (95-108); CREATININE 0.8 mg/dL (0.7-1.3); GFR > 60 ML/MIN (>=60 (CALC)); GFR FOR AFR.AMER. > 60 ML/MIN (>=60 (CALC)); MAGNESIUM 1.8 mg/dL (1.6-2.3); POTASSIUM 3.3 mmol/l (3.5-5.1); SODIUM 139 mmol/l (137-146)
[2021-08-17 07:06] VITALS: BP 119/55
[2021-08-17 11:05] VITALS: BP 138/67
[2021-08-17] MEDS ORDERED: LEVAQUIN750 M1 PO (11:36)
[2021-08-17] MEDS ORDERED: ONDANSETRON4 MG PO (11:39)
[2021-08-17 11:40] VITALS: BP 138/67
== END 2021-08-17 13:44 | disposition home health service (06) | DRG 335 ==
LOC: MS2 08-07 06:45 → MSOBS 08-07 08:00 → MS2 08-08 00:45
PROVIDERS: Hospitalist; Internal Medicine; Nurse Practitioner; ADMIT Surgery; ATTEND Internal Medicine
PROC: 0WQF0ZZ Repair Abdominal Wall, Open Approach (ICD-10-PCS; principal; 2021-08-07)
PROC: 0DNU4ZZ Release Omentum, Percutaneous Endoscopic Approach (ICD-10-PCS; 2021-08-08)
PROC: 0DJD8ZZ Inspection of Lower Intestinal Tract, Via Natural or Artificial Opening Endoscopic (ICD-10-PCS; 2021-08-08)
DX: K43.5 Parastomal hernia without obstruction or gangrene (principal); J18.9 Pneumonia, unspecified organism; K91.30 Postprocedural intestinal obstruction, unspecified as to partial versus complete; N39.0 Urinary tract infection, site not specified; J44.0 Chronic obstructive pulmonary disease with (acute) lower respiratory infection; I48.0 Paroxysmal atrial fibrillation; E11.9 Type 2 diabetes mellitus without complications; I25.10 Atherosclerotic heart disease of native coronary artery without angina pectoris; G47.00 Insomnia, unspecified; Y83.8 Other surgical procedures as the cause of abnormal reaction of the patient, or of later complication, without mention of misadventure at the time of the procedure; Z93.2 Ileostomy status; Z90.49 Acquired absence of other specified parts of digestive tract; Z79.891 Long term (current) use of opiate analgesic; Z95.818 Presence of other cardiac implants and grafts; Z95.828 Presence of other vascular implants and grafts; Z86.718 Personal history of other venous thrombosis and embolism; Z86.711 Personal history of pulmonary embolism; Z87.442 Personal history of urinary calculi; R50.9 Fever, unspecified; R00.0 Tachycardia, unspecified; K29.70 Gastritis, unspecified, without bleeding
CPT/HCPCS: C9290; J0131; J1650; J3370; J3475; Q9967; S0073; S0164

== ENCOUNTER 2021-08-24 10:52 | Inpatient (IN) | payer MEDICARE ==
[2021-08-24] VITALS (11 sets, daily range): BP systolic 109–130; BP diastolic 62–93
[~2021-08-24] VITALS: Ht 177.8 cm; Wt 109.0 kg
[~2021-08-24 10:52] MED LIST changes: +LEVAQUIN750 M1 PO
[2021-08-24 11:54] LABS: HEMATOCRIT 39.3 % (39.0-50.0); HEMOGLOBIN 13.4 g/dl (14.0-18.0); MEAN CELL VOLUME 95.9 fL CALC (80.0-100.0); MEAN CORPUSCULAR HGB 32.7 pG CALC (26.0-32.0); MEAN CORPUSCULAR HGB CONC 34.1 g/dL CAL (32.0-36.0); NEUT# 13.08 thou/uL (1.82-7.42); RED BLOOD COUNT 4.1 mill/uL (4.70-6.10); RED CELL DISTRI WIDTH 12.8 % (11.5-15.5)
[2021-08-24 12:12] LABS: ALKALINE PHOSPHATASE 67 u/l (38-126); ANION GAP 14 (6-22 (CALC)); BILIRUBIN, TOTAL 0.3 mg/dL (0.0-1.4); BUN 22 mg/dL (8-23); BUN/CREATININE RATIO 18 (12-20 (CALC)); CARBON DIOXIDE 30 mmol/l (22-30); CHLORIDE 93 mmol/l (95-108); CREATININE 1.2 mg/dL (0.7-1.3); GFR FOR AFR.AMER. > 60 ML/MIN (>=60 (CALC)); GFR OTHER RACES 60 ML/MIN (>=60 (CALC)); LIPASE 76 u/l (23-300); POTASSIUM 3.7 mmol/l (3.5-5.1); SGOT/AST 24 u/l (19-48); SODIUM 133 mmol/l (137-146)
[2021-08-24 12:13] LABS: ALBUMIN 3.6 g/dL (3.2-5.0); TOTAL PROTEIN 7.8 g/dL (6.3-8.2)
[2021-08-24 12:53] LABS: URINE BILIRUBIN - DIPSTICK NEGATIVE (NEGATIVE); URINE BLOOD DIPSTICK NEGATIVE (NEGATIVE); URINE COLOR YELLOW; URINE GLUCOSE - DIPSTICK NEGATIVE (NEGATIVE); URINE KETONE NEGATIVE (NEGATIVE); URINE LEUK ESTERASE NEGATIVE (NEGATIVE); URINE PH 6.5 (4.5-8.0); URINE PROTEIN - DIPSTICK NEGATIVE (NEG-TRACE); URINE UROBILINOGEN - DIPSTICK 0.2 E.U./dL (0.2)
[2021-08-24 12:55] LABS: URINE NITRITE - DIPSTICK NEGATIVE (Negative)
[2021-08-24] MEDS ORDERED: ONDANSETRON4 MG PO (14:53)
[2021-08-25 00:22] VITALS: BP 122/73
[2021-08-25 04:00] VITALS: BP 142/75
[2021-08-25 04:28] VITALS: BP 142/75
[2021-08-25 05:13] LABS: HEMATOCRIT 37.1 % (39.0-50.0); HEMOGLOBIN 12.2 g/dl (14.0-18.0); MEAN CELL VOLUME 100.3 fL CALC (80.0-100.0); MEAN CORPUSCULAR HGB CONC 32.9 g/dL CAL (32.0-36.0); RED BLOOD COUNT 3.7 mill/uL (4.70-6.10)
[2021-08-25 05:27] LABS: ANION GAP 12 (6-22 (CALC)); BUN 14 mg/dL (8-23); BUN/CREATININE RATIO 15 (12-20 (CALC)); CARBON DIOXIDE 29 mmol/l (22-30); CHLORIDE 97 mmol/l (95-108); GFR FOR AFR.AMER. > 60 ML/MIN (>=60 (CALC)); GFR OTHER RACES > 60 ML/MIN (>=60 (CALC)); MAGNESIUM 1.8 mg/dL (1.6-2.3); POTASSIUM 3.7 mmol/l (3.5-5.1); SODIUM 134 mmol/l (137-146)
[2021-08-25 06:40] VITALS: BP 140/70
[2021-08-25 19:10] VITALS: BP 105/49
[2021-08-26 01:14] VITALS: BP 129/76
[2021-08-26 05:04] VITALS: BP 123/71
[2021-08-26 05:37] LABS: HEMATOCRIT 37.9 % (39.0-50.0); HEMOGLOBIN 12.3 g/dl (14.0-18.0); IMMATURE GRANULOCYTES 0.7 % (0.0-5.0); MEAN CELL VOLUME 101.1 fL CALC (80.0-100.0); MEAN CORPUSCULAR HGB 32.8 pG CALC (26.0-32.0); MEAN CORPUSCULAR HGB CONC 32.5 g/dL CAL (32.0-36.0); NEUT# 13.77 thou/uL (1.82-7.42); RED BLOOD COUNT 3.75 mill/uL (4.70-6.10); RED CELL DISTRI WIDTH 12.6 % (11.5-15.5)
[2021-08-26 06:06] LABS: ALBUMIN 3.1 g/dL (3.2-5.0); ALKALINE PHOSPHATASE 57 u/l (38-126); ANION GAP 15 (6-22 (CALC)); BILIRUBIN, TOTAL 0.2 mg/dL (0.0-1.4); BUN 11 mg/dL (8-23); BUN/CREATININE RATIO 13 (12-20 (CALC)); CARBON DIOXIDE 24 mmol/l (22-30); CHLORIDE 104 mmol/l (95-108); CREATININE 0.9 mg/dL (0.7-1.3); GFR FOR AFR.AMER. > 60 ML/MIN (>=60 (CALC)); GFR OTHER RACES > 60 ML/MIN (>=60 (CALC)); MAGNESIUM 1.9 mg/dL (1.6-2.3); SGOT/AST 16 u/l (19-48); SODIUM 138 mmol/l (137-146); TOTAL PROTEIN 6.7 g/dL (6.3-8.2)
[2021-08-26 06:07] LABS: POTASSIUM 4.7 mmol/l (3.5-5.1)
[2021-08-26 06:27] VITALS: BP 115/66
[2021-08-26 10:42] VITALS: BP 126/66
[2021-08-26 16:51] VITALS: BP 122/71
[2021-08-26 19:27] VITALS: BP 123/55
[2021-08-27 00:09] VITALS: BP 126/66
[2021-08-27 04:17] VITALS: BP 133/68
[2021-08-27 05:34] LABS: HEMATOCRIT 38.2 % (39.0-50.0); HEMOGLOBIN 12.1 g/dl (14.0-18.0); MEAN CELL VOLUME 102.7 fL CALC (80.0-100.0); MEAN CORPUSCULAR HGB 32.5 pG CALC (26.0-32.0); MEAN CORPUSCULAR HGB CONC 31.7 g/dL CAL (32.0-36.0); RED BLOOD COUNT 3.72 mill/uL (4.70-6.10)
[2021-08-27 06:04] LABS: ANION GAP 14 (6-22 (CALC)); BUN 12 mg/dL (8-23); BUN/CREATININE RATIO 15 (12-20 (CALC)); CARBON DIOXIDE 22 mmol/l (22-30); CHLORIDE 107 mmol/l (95-108); CREATININE 0.8 mg/dL (0.7-1.3); GFR FOR AFR.AMER. > 60 ML/MIN (>=60 (CALC)); GFR OTHER RACES > 60 ML/MIN (>=60 (CALC)); POTASSIUM 4.9 mmol/l (3.5-5.1); SODIUM 138 mmol/l (137-146)
[2021-08-27 06:27] VITALS: BP 130/69
[2021-08-27 14:47] VITALS: BP 136/75
[2021-08-27 19:31] VITALS: BP 124/66
[2021-08-27 23:55] VITALS: BP 124/76
[2021-08-28 04:48] VITALS: BP 131/60
[2021-08-28 05:08] LABS: HEMOGLOBIN 13.3 g/dl (14.0-18.0); MEAN CELL VOLUME 101.4 fL CALC (80.0-100.0); MEAN CORPUSCULAR HGB 32.1 pG CALC (26.0-32.0); MEAN CORPUSCULAR HGB CONC 31.7 g/dL CAL (32.0-36.0); RED BLOOD COUNT 4.14 mill/uL (4.70-6.10); RED CELL DISTRI WIDTH 13.1 % (11.5-15.5)
[2021-08-28 05:32] LABS: ANION GAP 16 (6-22 (CALC)); BUN 20 mg/dL (8-23); BUN/CREATININE RATIO 20 (12-20 (CALC)); CARBON DIOXIDE 24 mmol/l (22-30); CHLORIDE 105 mmol/l (95-108); GFR FOR AFR.AMER. > 60 ML/MIN (>=60 (CALC)); GFR OTHER RACES > 60 ML/MIN (>=60 (CALC)); MAGNESIUM 2.1 mg/dL (1.6-2.3); POTASSIUM 4.4 mmol/l (3.5-5.1); SODIUM 141 mmol/l (137-146)
[2021-08-28 07:04] VITALS: BP 114/64
[2021-08-28 10:44] VITALS: BP 116/61
[2021-08-28 14:26] VITALS: BP 112/54
== END 2021-08-28 14:30 | disposition home health service (06) | DRG 390 ==
LOC: ED 10:52 → ED-I 14:10 → ED 14:34 → MS2 14:35
PROVIDERS: Family Medicine; Hospitalist; ADMIT Internal Medicine; ATTEND Internal Medicine
DX: K56.7 Ileus, unspecified (principal); T40.2X5A Adverse effect of other opioids, initial encounter; I10 Essential (primary) hypertension; E11.9 Type 2 diabetes mellitus without complications; I48.0 Paroxysmal atrial fibrillation; J44.9 Chronic obstructive pulmonary disease, unspecified; M19.031 Primary osteoarthritis, right wrist; G47.00 Insomnia, unspecified; I25.2 Old myocardial infarction; Z95.5 Presence of coronary angioplasty implant and graft; Z93.3 Colostomy status; Z86.711 Personal history of pulmonary embolism; Z86.718 Personal history of other venous thrombosis and embolism; Z95.818 Presence of other cardiac implants and grafts; Z87.442 Personal history of urinary calculi; Z20.822 Contact with and (suspected) exposure to COVID-19
CPT/HCPCS: J1650; Q9967

== ENCOUNTER 2022-08-25 01:01 | Emergency (ER) | payer MEDICARE ==
[~2022-08-25] VITALS: Ht 177.8 cm; Wt 108.0 kg
[2022-08-25 01:57] LABS: URINE BILIRUBIN - DIPSTICK NEGATIVE (NEGATIVE); URINE BLOOD DIPSTICK NEGATIVE (NEGATIVE); URINE COLOR YELLOW; URINE GLUCOSE - DIPSTICK NEGATIVE (NEGATIVE); URINE KETONE NEGATIVE (NEGATIVE); URINE LEUK ESTERASE NEGATIVE (NEGATIVE); URINE NITRITE - DIPSTICK NEGATIVE (Negative); URINE PH 5.5 (4.5-8.0); URINE PROTEIN - DIPSTICK NEGATIVE (NEG-TRACE); URINE SPECIFIC GRAVITY >=1.030; URINE UROBILINOGEN - DIPSTICK 0.2 E.U./dL (0.2)
[2022-08-25 03:15] VITALS: BP 102/54
== END 2022-08-25 03:26 | disposition home or self-care (01) ==
LOC: ED 01:01
PROVIDERS: Emergency Medicine
DX: R35.0 Frequency of micturition (principal); E11.9 Type 2 diabetes mellitus without complications; I10 Essential (primary) hypertension; J44.9 Chronic obstructive pulmonary disease, unspecified; I25.2 Old myocardial infarction; K21.9 Gastro-esophageal reflux disease without esophagitis; K50.90 Crohn's disease, unspecified, without complications

== ENCOUNTER 2022-09-08 19:21 | Emergency (ER) | payer MEDICARE ==
[2022-09-08] VITALS (19 sets, daily range): BP systolic 88–133; BP diastolic 37–76
[~2022-09-08] VITALS: Ht 177.8 cm; Wt 122.0 kg
[2022-09-08 20:08] LABS: ALBUMIN 4.1 g/dL (3.2-5.0); ALKALINE PHOSPHATASE 67 u/l (38-126); ANION GAP 13 (6-22 (CALC)); BUN 21 mg/dL (8-23); BUN/CREATININE RATIO 20 (12-20 (CALC)); CARBON DIOXIDE 22 mmol/l (22-30); CHLORIDE 106 mmol/l (95-108); CREATININE 1.1 mg/dL (0.7-1.3); GFR FOR AFR.AMER. > 60 ML/MIN (>=60 (CALC)); GFR OTHER RACES > 60 ML/MIN (>=60 (CALC)); LIPASE 129 u/l (23-300); POTASSIUM 3.9 mmol/l (3.5-5.1); SGOT/AST 30 u/l (19-48); SODIUM 137 mmol/l (137-146); TOTAL PROTEIN 7.9 g/dL (6.3-8.2)
[2022-09-08 20:13] LABS: BASO% 0.5 % (0-3); D-DIMER 0.88 mg/L (0.19-0.60); EOS% 1.5 % (0-8); HEMATOCRIT 47.5 % (39.0-50.0); IMMATURE GRANULOCYTES 0.2 % (0.0-5.0); LYMPH% 19.5 % (15-41); MEAN CELL VOLUME 97.5 fL CALC (80.0-100.0); MEAN CORPUSCULAR HGB 32.9 pG CALC (26.0-32.0); MEAN CORPUSCULAR HGB CONC 33.7 g/dL CAL (32.0-36.0); MONO% 8.8 % (2-13); NEUT# 9.02 thou/uL (1.82-7.42); NEUT% 69.5 % (42-76); RED BLOOD COUNT 4.87 mill/uL (4.70-6.10)
[2022-09-08 20:21] LABS: ACT PARTIAL THROMBO TIME 26.7 SECONDS (20.0-32.5); INTERNATIONAL NORMALIZED RATIO 1.1 RATIO (0.7-1.3); PROTHROMBIN TIME 10.5 SECONDS (9.0-12.5)
[2022-09-08 20:34] LABS: BILIRUBIN, TOTAL 0.5 mg/dL (0.2-1.3)
[2022-09-08 22:34] LABS: URINE BILIRUBIN - DIPSTICK NEGATIVE (NEGATIVE); URINE BLOOD DIPSTICK NEGATIVE (NEGATIVE); URINE COLOR YELLOW; URINE GLUCOSE - DIPSTICK NEGATIVE (NEGATIVE); URINE KETONE NEGATIVE (NEGATIVE); URINE LEUK ESTERASE NEGATIVE (NEGATIVE); URINE PROTEIN - DIPSTICK NEGATIVE (NEG-TRACE); URINE SPECIFIC GRAVITY 1.015; URINE UROBILINOGEN - DIPSTICK 0.2 E.U./dL (0.2)
[2022-09-08 22:36] LABS: URINE NITRITE - DIPSTICK NEGATIVE (Negative)
== END 2022-09-08 23:33 | disposition home or self-care (01) ==
LOC: ED 19:21
PROVIDERS: Family Medicine
DX: R07.9 Chest pain, unspecified (principal); I10 Essential (primary) hypertension; E11.9 Type 2 diabetes mellitus without complications; J44.9 Chronic obstructive pulmonary disease, unspecified; K21.9 Gastro-esophageal reflux disease without esophagitis; K50.90 Crohn's disease, unspecified, without complications; I25.2 Old myocardial infarction
CPT/HCPCS: Q9967